=== PATIENT | male | born 1955 | race Caucasian/White ===

== ENCOUNTER → 2016-05-17 | Outpatient (CLI) | payer OTHER | LOC: FIMAGING 09:16 | PROVIDERS: ATTEND Nurse Practitioner | DX: K22.2 Esophageal obstruction (principal); C15.9 Malignant neoplasm of esophagus, unspecified ==

== ENCOUNTER 2016-05-23 10:13 | Day surgery (SDC) | payer OTHER ==
[2016-05-23] MEDS ORDERED: LIDOCAINE 1% 5 ML SDV ONE (11:11)
[2016-05-23] MEDS ORDERED: MIDAZOLAM 2 MG/2 ML VIAL ONE (11:22)
[2016-05-23] MEDS ORDERED: KETAMINE 100 MG/10 ML SYR IVP ONE (11:31)
[2016-05-23] MEDS ORDERED: fentaNYL 100 MCG/2 ML INJ ONE (11:33)
[2016-05-23] MEDS ORDERED: PROPOFOL 200 MG/20 ML VIAL ONE ×2 (11:37→12:02)
[2016-05-23] MEDS ORDERED: GLYCOPYRROLATE 0.2 MG/1 ML VIAL ONE (12:01)
--- NOTE | 2016-05-23 12:51 | GPN ---
PREPROCEDURE DIAGNOSIS: Dysphagia, history of esophageal cancer. POSTPROCEDURE DIAGNOSIS: Esophageal stricture, status post biopsies and foreign body removal. PROCEDURE: EGD with biopsy and foreign body removal. MEDICATIONS: Monitored anesthesia care. INDICATIONS: The patient is a 61-year-old gentleman with history of esophageal cancer which was treated with chemoradiation. He did not have surgical resection. He also had concern for metastatic disease in his femur and shoulder. He has been having progressive dysphagia. On his prior upper endoscopy and endoscopic ultrasound, he was noted to have a narrowing at 35 cm from the incisors. Biopsies in January of this site were not done. There was no obvious deeper invasion on EUS. The patient is here for repeat upper endoscopy, possible dilation, possible biopsy. The risks and benefits of the procedure were discussed with the patient. Consent was obtained. The risks include, but not limited to, bleeding, perforation, missed lesions and sedation. The patient is ASA class 3. DESCRIPTION OF PROCEDURE: The upper scope was advanced into the esophagus. At 34 cm from the incisors, there is a nodular, ulcerated inflammation and stricture. This could be benign or malignant. I was unable to pass the scope past this area. There was a pill noted in the esophagus proximal to the stricture. Since it was felt that the pill would not pass on its own, I removed the pill using a Antonio net. Next, I reinserted the pediatric upper scope which was able to be passed beyond the stricture and narrowing. The stricture and narrowing is located between 34 and 37 cm from the incisors. There is a medium sized hiatal hernia distal to the stricture. The stomach appears normal. The duodenum and second portion appears normal. Multiple biopsies were taken of the stricture ulcerated area using pediatric cold biopsy forceps and sent off to pathology. The area is extremely friable. No dilation was performed today given the high risk of balloon dilation in an ulcerated area particularly if there is recurrent malignancy in this location. IMPRESSION: Tight distal esophageal stricture between 34 and 37 cm incisors which could be benign or malignant status post biopsies. RECOMMENDATIONS: 1. The patient needs to be on a liquid diet. 2. Follow up the final pathology results. Results will be available within 10 days. We will send the path stat, however. Hopefully, it will be back within a day or 2. 3. Depending on the final biopsy results, we will decide what to do. If this all appears benign, I would consider wire guided balloon dilation with fluoroscopy. However, if recurrent cancer, they will have to decide if he is a candidate for any further radiation versus considering esophageal stent versus G tube. 4. Follow up with Dr. Duran as scheduled, and I will call him to discuss further management plan from dysphagia depending on what the biopsies show. Thank you for allowing me to participate in the care of your patient. Please do not hesitate to call with questions. /[id number]/MODL MTDD
== END 2016-05-23 13:55 | disposition home or self-care (01) ==
LOC: FSGY 10:13
PROVIDERS: ATTEND Internal Medicine Gastroenterology
DX: C15.4 Malignant neoplasm of middle third of esophagus (principal); T18.198A Other foreign object in esophagus causing other injury, initial encounter; K44.9 Diaphragmatic hernia without obstruction or gangrene
CPT/HCPCS: J2250; J2704; J3010

== ENCOUNTER 2016-06-04 10:21 | Day surgery (SDC) | payer OTHER ==
[2016-06-04] MEDS ORDERED: LIDOCAINE 1% 5 ML SDV ONE (10:46)
[2016-06-04] MEDS ORDERED: LIDOCAINE 1% 5 ML SDV ID PRN (10:51)
[2016-06-04] MEDS ORDERED: LR 1,000 ML IV ONE (10:51)
[2016-06-04] MEDS ORDERED: PROPOFOL/EMULSION 500 MG/50 ML BOTTLE IV ONE ×2 (11:34→11:57)
[2016-06-04] MEDS ORDERED: LIDOCAINE 2% 100 MG/5 ML SYR IVP ONE (11:34)
[2016-06-04] MEDS ORDERED: fentaNYL 100 MCG/2 ML INJ ONE ×2 (11:34→12:55)
--- NOTE | 2016-06-04 13:46 | GPN ---
PREPROCEDURE DIAGNOSIS: Malignant esophageal cancer, dysphagia. POSTPROCEDURE DIAGNOSIS: Malignant esophageal cancer, dysphagia. Status post esophageal stent placement. NAME OF PROCEDURE: Esophagogastroduodenoscopy with foreign body removal. Esophagogastroduodenoscopy with stent placement. MEDICATIONS: Monitored anesthesia care. INDICATIONS: The patient is a 61-year-old male with malignant esophageal cancer and recurrence after chemoradiation therapy, status post recent EGD, which showed recurrence between 34 and 37 cm with biopsies showing adenocarcinoma with signet ring features. He is here today for esophageal stent placement. The risks and benefits of the procedure were discussed with the patient, and consent obtained. Risks include, but are not limited to, bleeding, perforation, sedation. The patient is ASA class III. DESCRIPTION OF PROCEDURE: Initially, the pediatric upper scope was advanced into the esophagus. The stricture was again seen at 34 cm. Secondary to malignant cancer. There were pills in the proximal esophagus and food. The scope was then switched to the adult scope, and the pill was removed using a Antonio net. Next, the pediatric scope was re-inserted and advanced into the stomach. He has a medium sized hiatal hernia. The stomach appears normal. The duodenum and second portion was normal. Next, the Savary wire was placed into the stomach to hold position. The scope was then exchanged for the adult scope and a hemoclip was placed at 31 cm to kofi the proximal position of the stent. The scope was then removed, and then the stent re-inserted over the Savary wire using fluoroscopic guidance. An 18 mm x 10.3 cm fully covered esophageal WallFlex stent was placed. The scope was re-inserted to use direct visualization and fluoroscopic guidance for stent placement. The stent was deployed in the proper position. Waist was seen in the center of the stent, again indicating proper positioning. The procedure was then terminated. IMPRESSION: Esophageal stricture secondary to adenocarcinoma status post placement of a fully covered WallFlex esophageal stent. RECOMMENDATIONS: 1. Discharge home with escort. 2. The stent takes 48 hours to fully expand, so I am recommending a liquid diet for the next 48 hours. Then, he can advance to a soft diet. 3. Follow up with Dr. Duran as previously scheduled to discuss further treatment for esophageal cancer. Thank you for allowing me to participate in the care of your patient. Please do not hesitate to call with questions. /[id number]/MODL MTDD
== END 2016-06-04 13:45 | disposition home or self-care (01) ==
LOC: FSGY 10:21
PROVIDERS: ATTEND Internal Medicine Gastroenterology
PROC: 0D758DZ Dilation of Esophagus with Intraluminal Device, Via Natural or Artificial Opening Endoscopic (ICD-10-PCS; principal; 2016-06-04 12:00)
PROC: 0DC18ZZ Extirpation of Matter from Upper Esophagus, Via Natural or Artificial Opening Endoscopic (ICD-10-PCS; principal; 2016-06-04 12:00)
DX: C15.9 Malignant neoplasm of esophagus, unspecified (principal); T18.190A Other foreign object in esophagus causing compression of trachea, initial encounter; R13.10 Dysphagia, unspecified; I25.10 Atherosclerotic heart disease of native coronary artery without angina pectoris; I10 Essential (primary) hypertension; E11.9 Type 2 diabetes mellitus without complications; Z95.1 Presence of aortocoronary bypass graft
CPT/HCPCS: C1874; J2001; J2704; J3010

== ENCOUNTER 2016-06-06 03:46 | Inpatient (IN) | payer OTHER ==
[2016-06-06] MEDS ORDERED: ONDANSETRON DISINTEGRATING 4 MG TAB PO ONE (03:54)
[2016-06-06] MEDS ORDERED: ONDANSETRON 4 MG/2 ML VIAL IVP ONE ×2 (04:49→07:38)
[2016-06-06] MEDS ORDERED: HYDROmorphONE/DILAUDID 1 MG/ML SYR IVP ONE ×2 (04:49→08:49)
[2016-06-06] MEDS ORDERED: NS 1,000 ML IV ONE ×2 (04:49→07:17)
--- NOTE | 2016-06-06 04:49 | EDPHY ---
H & P Stated Complaint: post op N and V since surgery Friday for esophogeal stent placement HPI/ROS: HPI CHIEF COMPLAINT: Nausea and vomiting HISTORY OF PRESENT ILLNESS: This patient very pleasant 61-year-old male significant past medical history for esophageal cancer, hypertension, hyperlipidemia, BPH, diabetes, coronary artery bypass graft, presents emergency room with persistent nausea vomiting unable to tolerate p.o.. Patient tells me that [address] Zazueta he had an esophageal stent placed due to esophageal stricture from esophageal cancer and foreign body of pill fragments removed. This was done outpatient. He states that he has been on a clear liquid diet for the past 48 hours however has been unable to tolerate p.o. fluids he has persistent nausea vomiting. Denies fever, does endorse chills, denies abdominal pain. No recent bowel movement as he has been on clear liquids. He has not had any solid foods. Past Medical History:Esophageal CA, hypertension, hyperlipidemia, BPH, diabetes , coronary disease Past Surgical History: cholecystectomy, CABG, mcl Social History: Denies use of drugs alcohol tobacco products Family History: Noncontributory ROS REVIEW OF SYSTEMS: A comprehensive 10 point review of systems is otherwise negative aside from elements mentioned in the history of present illness. Exam Constitutional appears well nontoxic, triage nursing summary reviewed, vital signs reviewed, awake/alert. Eyes normal conjunctivae and sclera, EOMI, PERRLA. HENT normal inspection, atraumatic, moist mucus membranes, no epistaxis, neck supple/ no meningismus, no raccoon eyes. Respiratory clear to auscultation bilaterally, normal breath sounds, no respiratory distress, no wheezing. Cardiovascular rate normal, regular rhythm, no murmur, no edema, distal pulses normal. Gastrointestinal soft, non-tender, no rebound, no guarding, normal bowel sounds, no distension, no pulsatile mass. Genitourinary no CVA tenderness. Musculoskeletal no midline vertebral tenderness, full range of motion, no calf swelling, no tenderness of extremities, no meningismus, good pulses, neurovascularly intact. Skin pink, warm, & dry, no rash, skin atraumatic. Neurologic awake, alert and oriented x 3, AAOx3, moves all 4 extremities equally, motor intact, sensory intact, CN II-XII intact, normal cerebellar, normal vision, normal speech. Psychiatric normal mood/affect. Heme/Lymph/Immune no lymphadenopathy. Differential diagnosis includes but is not limited to and in no particular order : Electrolyte abnormality, dehydration, esophageal stricture, esophagitis, nausea vomiting from a recent stent in the esophagus, esophageal perforation Bowel obstruction, appendicitis, gallbladder disease, diverticulitis, colitis, enteritis, perforated viscus, gastritis, GERD, esophagitis, urinary tract infection, pyelonephritis, kidney stones Medical Decision Making: Plan for this patient patient be placed on full monitor patient had an IV established will receive a fluid bolus of IV fluids normal saline, IV Zofran for nausea. Will check abdominal blood work including liver enzymes, lipase, patient had an upright chest x-ray and KUB. Re-evaluation: ED x-ray chest one view: no free air visualized. Chest x-ray unremarkable for acute cardiopulmonary disease. Port left chest. Cardiomegaly present. However no focal infiltrate or free air under the diaphragm. Image interpreted by myself pain ED x-ray KUB one view; shows normal bowel gas pattern, I can visualize esophageal stent. No free air. 0625: re-evaluation at this time patient is resting comfortably he has not had any vomiting here. He tells me his nausea has resolved. He did received IV fluid 1 L, and IV Zofran 4 mg. Patient does feel much better. He is requesting go home. Re-examination is abdomen is soft nontender no guarding or peritoneal signs. X-ray and blood work review does have a mild leukocytosis. Otherwise unremarkable. Patient will attempt a p. o. challenge and if he tolerates this and still feels well without any vomiting or nausea I will allow her to go home however he does understand return immediately emergency room if he develops any worsening symptoms includes worsening abdominal pain, fever vomiting. 0654: this patient p. o. challenge successfully. No vomiting. Abdomen remained soft. Patient like to go home. I will give him prescription for Zofran. Understands return immediately to emergency room if develops any worsening symptoms includes worsening abdominal pain, vomiting fever. P. o. challenge and feels comfortable discharge planning. Source: Patient - Personal History Current Tetanus/Diphtheria Vaccine: No Current Tetanus Diphtheria and Acellular Pertussis (TDAP): No - Medical/Surgical History Hx Diabetes: Yes Hx Cardiac Disease: Yes Other PMH: esophogeal CA, HTN, high chol, GERD, DMII. PSH: esophogeal stent, CABG, tonsilectomy, appy, choly - Social History Smoking Status: Former smoker Constitutional: Initial Vital Signs Temperature (C) 37.1 C 06/06/16 03:51 Heart Rate 77 06/06/16 03:51 Respiratory Rate 15 06/06/16 03:51 Blood Pressure 180/92 H 06/06/16 03:51 O2 Sat (%) 95 06/06/16 03:51 O2 Delivery Mode Room Air Allergies/Adverse Reactions: No Known Allergies Allergy (Verified 05/24/15 16:01) Home Medications: Medication Instructions Recorded Aspirin 02/05/16 Atorvastatin Calcium 02/05/16 Glipizide 02/05/16 Herbals/Supplements -Info Only 02/05/16 Janumet 50-500 mg Tablet 02/05/16 Lisinopril 02/05/16 Metoprolol Succinate 02/05/16 Omeprazole 02/05/16 Tamsulosin HCl 02/05/16 Ondansetron HCl [Zofran] 4 mg PO Q4-6PRN PRN #10 tablet 06/06/16 Medical Decision Making - Data Points Laboratory Results: Laboratory Results 06/06/16 05:05 06/06/16 05:05 06/06/16 06/06/16 06/06/16 05:05 05:05 05:05 WBC 15.19 10^3/uL H 10^3/uL (3.80-9.50) RBC 4.97 10^6/uL 10^6/uL (4.40-6.38) Hgb 16.3 g/dL g/dL (13.7-17.5) Hct 46.6 % % (40.0-51.0) MCV 93.8 fL fL (81.5-99.8) MCH 32.8 pg pg (27.9-34.1) MCHC 35.0 g/dL g/dL (32.4-36.7) RDW 12.7 % % (11.5-15.2) Plt Count 198 10^3/uL 10^3/uL (150-400) MPV 9.6 fL fL (8.7-11.7) Neut % (Auto) 79.9 % H % (39.3-74.2) Lymph % (Auto) 8.8 % L % (15.0-45.0) [place] % (Auto) 10.2 % % (4.5-13.0) Eos % (Auto) 0.2 % L % (0.6-7.6) Baso % (Auto) 0.2 % L % (0.3-1.7) Nucleat RBC Rel Count 0.0 % % (0.0-0.2) Absolute Neuts (auto) 12.15 10^3/uL H 10^3/uL (1.70-6.50) Absolute Lymphs (auto) 1.33 10^3/uL 10^3/uL (1.00-3.00) Absolute Monos (auto) 1.55 10^3/uL H 10^3/uL (0.30-0.80) Absolute Eos (auto) 0.03 10^3/uL 10^3/uL (0.03-0.40) Absolute Basos (auto) 0.03 10^3/uL 10^3/uL (0.02-0.10) Absolute Nucleated RBC 0.00 10^3/uL 10^3/uL (0-0.01) Immature Gran % 0.7 % % (0.0-1.1) Immature Gran # 0.10 10^3/uL 10^3/uL (0.00-0.10) PT 13.7 SEC SEC (12.0-15.0) INR 1.06 (0.83-1.16) APTT 27.5 SEC SEC (23.0-38.0) VBG Lactic Acid Sodium 140 mEq/L mEq/L (134-144) Potassium 4.0 mEq/L mEq/L (3.5-5.2) Chloride 104 mEq/L mEq/L (97-110) Carbon Dioxide 23 mEq/l mEq/l (22-31) Anion Gap 13 mEq/L mEq/L (8-16) BUN 18 mg/dL mg/dL (7-23) Creatinine 0.7 mg/dL mg/dL (0.7-1.3) Estimated GFR > 60 Glucose 227 mg/dL H mg/dL (70-100) Calcium 9.6 mg/dL mg/dL (8.5-10.4) Total Bilirubin 1.6 mg/dL H mg/dL (0.1-1.4) Conjugated Bilirubin 0.6 mg/dL H mg/dL (0.0-0.5) Unconjugated Bilirubin 1.0 mg/dL mg/dL (0.0-1.1) AST 27 IU/L IU/L (17-59) ALT 44 IU/L IU/L (21-72) Alkaline Phosphatase 83 IU/L IU/L (38-126) Troponin I < 0.012 ng/mL ng/mL (0-0.034) Total Protein 7.6 g/dL g/dL (6.3-8.2) Albumin 4.3 g/dL g/dL (3.5-5.0) Lipase 59.0 IU/L IU/L (23-300) 06/06/16 05:05 WBC RBC Hgb Hct MCV MCH MCHC RDW Plt Count MPV Neut % (Auto) Lymph % (Auto) [place] % (Auto) Eos % (Auto) Baso % (Auto) Nucleat RBC Rel Count Absolute Neuts (auto) Absolute Lymphs (auto) Absolute Monos (auto) Absolute Eos (auto) Absolute Basos (auto) Absolute Nucleated RBC Immature Gran % Immature Gran # PT INR APTT VBG Lactic Acid 1.6 mmol/L mmol/L (0.7-2.1) Sodium Potassium Chloride Carbon Dioxide Anion Gap BUN Creatinine Estimated GFR Glucose Calcium Total Bilirubin Conjugated Bilirubin Unconjugated Bilirubin AST ALT Alkaline Phosphatase Troponin I Total Protein Albumin Lipase Medications Given: Discontinued Medications Hydromorphone HCl (Dilaudid) 0.5 mg IVP EDNOW ONE Stop: 06/06/16 04:50 Last Admin: 06/06/16 05:29 Dose: 0.5 mg Sodium Chloride (Ns) 1,000 mls @ 0 mls/hr IV ONCE ONE PRN Reason: Wide Open Stop: 06/06/16 04:50 Last Admin: 06/06/16 05:20 Dose: 1,000 mls Ondansetron HCl (Zofran Odt) 4 mg PO EDNOW ONE Stop: 06/06/16 03:55 Last Admin: 06/06/16 04:01 Dose: 4 mg Ondansetron HCl (Zofran) 4 mg IVP EDNOW ONE Stop: 06/06/16 04:50 Last Admin: 06/06/16 05:20 Dose: 4 mg Departure - Departure Disposition: Home, Routine, Self-Care Clinical Impression: Vomiting Qualifiers: Vomiting type: unspecified Vomiting Intractability: non-intractable Nausea presence: with nausea Qualified Code(s): R11.2 - Nausea with vomiting, unspecified Condition: Good Instructions: Acute Nausea and Vomiting (ED) Additional Instructions: 1. return to the emergency room if develops worsening symptoms includes fever, abdominal pain, vomiting Referrals: Zeke Buchanan MD [Primary Care Provider] - As per Instructions Prescriptions: Ondansetron HCl [Zofran] 4 mg PO Q4-6PRN PRN #10 tablet PRN Reason: Nausea/Vomiting, Use 1st
[2016-06-06 05:19] LABS: % IMMATURE GRANULYOCYTES 0.7 % (0.0-1.1); ADD DIFF? NO; ADD MORPH? NO; ADD SCAN? NO; ATYPICAL LYMPHOCYTE FLAG 0 (0-99); FRAGMENT RBC FLAG 0 (0-99); HEMATOCRIT 46.6 % (40.0-51.0); HEMOGLOBIN 16.3 g/dL (13.7-17.5); LEFT SHIFT FLG 0 (0-99); LIPEMIA HEMOLYSIS FLAG 90 (0-99); MEAN CELL HEMOGLOBIN 32.8 pg (27.9-34.1); MEAN CELL VOLUME 93.8 fL (81.5-99.8); MEAN PLATELET VOLUME 9.6 fL (8.7-11.7); PLATELET CLUMPS FLAG 0 (0-99); PLATELET COUNT 198 10^3/uL (150-400); RED BLOOD CELL COUNT 4.97 10^6/uL (4.40-6.38); RED CELL DISTRIBUTION WIDTH 12.7 % (11.5-15.2)
[2016-06-06 05:31] LABS: ALANINE AMINOTRANSFERASE 44 IU/L (21-72); ALBUMIN 4.3 g/dL (3.5-5.0); ALKALINE PHOSPHATASE 83 IU/L (38-126); ANION GAP 13 mEq/L (8-16); ASPARTATE AMINOTRANSFERASE 27 IU/L (17-59); BILIRUBIN,TOTAL 1.6 mg/dL (0.1-1.4); BILIRUBIN-CONJUGATED 0.6 mg/dL (0.0-0.5); CALCIUM 9.6 mg/dL (8.5-10.4); CARBON DIOXIDE 23 mEq/l (22-31); CHLORIDE 104 mEq/L (97-110); CREATININE 0.7 mg/dL (0.7-1.3); GLOMERULAR FILTRATION RATE > 60; GLUCOSE 227 mg/dL (70-100); SODIUM 140 mEq/L (134-144); TOTAL PROTEIN 7.6 g/dL (6.3-8.2)
[2016-06-06 05:36] LABS: APTT 27.5 SEC (23.0-38.0); INR 1.06 (0.83-1.16); PROTIME(PATIENT) 13.7 SEC (12.0-15.0)
[2016-06-06 05:41] LABS: TROPONIN I < 0.012 ng/mL (0-0.034)
[2016-06-06] MEDS ORDERED: PROMETHAZINE HCL 25 MG/ML INJ IVP ONE (07:17)
[2016-06-06] MEDS ORDERED: PROCHLORPERAZINE MALEATE 10 MG TAB PO ONE (07:27)
[2016-06-06] MEDS ORDERED: ONDANSETRON 4 MG/2 ML VIAL ONE (07:29)
[2016-06-06] MEDS ORDERED: HYDROmorphONE/DILAUDID 2 MG/ML INJ ONE (08:51)
[2016-06-06] MEDS ORDERED: LORazepam 2 MG/ML INJ IVP PRN (09:53)
[2016-06-06] MEDS ORDERED: ONDANSETRON 4 MG/2 ML VIAL IVP PRN (09:53)
[2016-06-06] MEDS ORDERED: ACETAMINOPHEN 325 MG TAB PO PRN (09:53)
[2016-06-06] MEDS ORDERED: KETOROLAC 30 MG/1 ML SDV IVP PRN (09:53)
[2016-06-06] MEDS ORDERED: PROMETHAZINE HCL 25 MG SUPPR PR PRN (09:54)
[2016-06-06] MEDS ORDERED: METOCLOPRAMIDE 10 MG/2 ML VIAL IVP PRN (09:55)
[2016-06-06] MEDS ORDERED: HYDROCODONE/APAP 10/325 TAB PO PRN (09:56)
[2016-06-06] MEDS ORDERED: D50W 25 GM/50 ML SYR IVP PRN (09:57)
[2016-06-06] MEDS ORDERED: LORazepam 2 MG/ML INJ ONE (09:59)
[2016-06-06] MEDS ORDERED: KETOROLAC 30 MG/1 ML SDV ONE (10:00)
--- NOTE | 2016-06-06 10:32 | GHP ---
[f rep st] HISTORY AND PHYSICAL DATE OF ADMISSION: 06/06/2016 CHIEF COMPLAINT: Nausea and vomiting. HISTORY: The patient is a 61-year-old male with esophageal cancer. Underwent esophageal stent plac emgentry with Dr. Zazueta 2 days ago. At the time of endoscopy, he was found to have pills and food pr oximal to the stricture. Stent was changed. According to Dr. Zazueta's records, the stent will yvette e 48 hours to fully expand, and liquid diet was recommended for 2 days. Patient has had persistent nausea and vomiting ever since the stent was placed. It has been unrelen ting for the last 3 days. He has a constant mid chest pain since the procedure 06/07 to 07/08. This has not worsened over the last couple days but has just remained significant. He has not slept a wi nk since the stent was placed. There is no abdominal pain. He has been attempting to take liquids only but has not even been able to maintain that. Dry heaving for 3 days, without any hematemesis. He has been passing gas but no bowel movement. PAST MEDICAL HISTORY: 1. Esophageal cancer, status post chemo and radiation. Followed by Dr. Duran. He has mets to hi s femur and shoulder on PET scan. 2. Coronary artery disease, status post CABG. 3. Diabetes, type 2. 4. BPH. 5. Hyperlipidemia. PAST SURGICAL HISTORY: Cholecystectomy. MEDICATIONS: Please see computer record for full detailed list. ALLERGIES: No known drug allergies. SOCIAL HISTORY: No smoking. No alcohol. He lives with his . REVIEW OF SYSTEMS: Complete review of systems obtained. Review of systems is negative on constitut ional, HEENT, GI, pulmonary, vascular, , hematology, skin, musculoskeletal, endocrine, and psych e xcept for positives and negatives as in HPI. FAMILY HISTORY: Sister and mother both with breast cancer. PHYSICAL EXAMINATION: GENERAL: Well-developed, well-nourished male, in no acute distress. VITAL S IGNS: Temperature is 37.1, pulse 62, blood pressure 168/72, saturating 93% on room air. EYES: Nor mal conjunctivae. Pupils react to light. ENT: Normal ears and nose. Hearing intact. Normal lips and teeth. Oropharynx moist. NECK: Trachea midline. No thyromegaly. CHEST: Normal effort. Shannan ngs clear to auscultation bilaterally. CARDIOVASCULAR: Regular rate and rhythm. No murmur. No lo wer extremity edema. ABDOMEN: Soft, nontender. No hepatosplenomegaly. SKIN: Warm, dry, intact. No rash. MUSCULOSKELETAL: No cyanosis or clubbing. Strength 5/5 upper and lower extremities. NE URO: Cranial nerves intact. Normal sensation to light touch. PSYCH: Alert and oriented x3. Norm al mood and affect. Normal judgment and insight. Normal memory. LABORATORY DATA: White count 15.19, hematocrit 46.6, platelets 198. Sodium 140, potassium 4.0, chl oride 104, bicarb 23, BUN 18, creatinine 0.7, glucose 227. INR is 1.06. LFTs are negative except f or total bili of 1.6 and conjugated bili 0.6. Lactate is 1.6. Chest x-ray is negative. Abdominal x-ray is negative. MEDICAL RECORD REVIEW: I reviewed Dr. Zazueta's records for procedure done 2 days ago. It appears esophageal stent was placed without difficulty, and 48 hours of liquid diet was recommended. ASSESSMENT/PLAN: 1. Intractable nausea and vomiting, status post esophageal stent placement. My suspicion for a com plication with the stent placement is quite low, and I do not think he needs any further imaging at this time. We will admit him under observation and continue with supportive care, including IV anti emetics and IV morphine. I have contacted Dr. Rock and informed him of this admission. 2. Esophageal cancer, status post chemoradiation. Hopefully this will be a short stay with some buckner pportive care, but we can involve Oncology if needed. 3. Diabetes, type 2. Will hold his oral diabetes medications until he is able to take more oral in take. 4. Coronary artery disease, status post coronary artery bypass graft. This appears stable. 5. Obesity, BMI is 37. CODE STATUS: Full. ADMISSION STATUS: Will admit to observation. Will continue a period of supportive care and observa tion to ensure he is improved and able to take p.o. DVT PROPHYLAXIS: He is high risk. Will place him on subcu Lovenox. /[id number]/MODL
[2016-06-06] MEDS ORDERED: METOPROLOL TARTRATE 50 MG TAB ONE (11:05)
[2016-06-06] MEDS: METOPROLOL TARTRATE 50 MG TAB PO SCH ×2 (11:22→21:04)
[2016-06-06] MEDS: INSULIN REGULAR HUMAN 100 UNIT/ML SC SCH ×3 (11:44→21:27)
[2016-06-06] MEDS ORDERED: PANTOPRAZOLE SODIUM 40 MG VIAL ONE (11:49)
[2016-06-06 11:51] LABS: COLOR YELLOW; LEUKOCYTE ESTERASE,URINE NEGATIVE (NEGATIVE); NITRITE,URINE NEGATIVE (NEGATIVE)
[2016-06-06] MEDS: PANTOPRAZOLE SODIUM 40 MG in NS 100 ML IV SCH ×2 (11:53→21:05)
[2016-06-06 11:56] LABS: MUCUS 2+ /lpf (NONE-1+)
[2016-06-06] MEDS ORDERED: oxyCODONE IR 5 MG TAB ONE (15:27)
[2016-06-06] MEDS: oxyCODONE IR 5 MG TAB PO PRN ×3 (15:27→23:52)
[2016-06-06] MEDS ORDERED: ZOLPIDEM TARTRATE 5 MG TAB PO PRN (16:32)
[2016-06-06] MEDS: metFORMIN HCL 500 MG TAB PO SCH (18:11)
--- NOTE | 2016-06-06 20:24 | GCON ---
[f rep st] CONSULTATION GI INPATIENT CONSULTATION. DATE OF CONSULTATION: 06/06/2016 I was kindly requested to see the patient by Dr. Heahter Jones in consultation for chief complaint of nausea, vomiting. Two days ago, he had a covered metal stent placed in the esophagus by my partner , Dr. Zazueta. Over the last 2 days, he has had some postprocedural chest pain. He has also had some increase in reflux, regurgitation, cough. He normally takes omeprazole, but has not been on this since Friday. He has also had nausea and vomiting. Now, after IV fluids, and especially after Zofran and OxyContin, he feels much better. He denies any further nausea and vomiting. He has had some clear liquids tonight, which for the most part went down well. He has known recurrent esophageal cancer. His procedure 2 days ago was due to significant dysphagia from a malignant stricture at 34 cm in the esophagus. The procedure was done under monitored anesthesia. At the time, he had significant food and pills stuck above his malignant stricture. These were removed by Dr. Zazueta. The stricture itself began at 34 cm. There was a medium-sized hiatal hernia. An 18 mm diameter, 10.3 cm long covered self- expanding metal Wallstent was placed. Chest x-ray now shows that the stent is in good position, without e/o perforation, etc. No fever. PAST MEDICAL HISTORY: 1. As above. 2. Status post chemo and radiation for the above esophageal cancer. It is metastatic, including to his femur and shoulder. 3. Coronary artery disease, status post bypass grafting. 4. Diabetes mellitus. 5. BPH. 6. Elevated lipids. 7. Status post cholecystectomy. ALLERGIES: No known drug allergies. MEDICATIONS: Outpatient, include the above. Inpatient, include Lopressor, Lovenox, Glucotrol, Humulin, pantoprazole 40 mg IV b.i.d., Januvia, glipizide, Zestril, Toradol as needed, Ativan as needed, IV fluids, Flomax, Ambien, Glucophage, Reglan as needed. SOCIAL HISTORY: He is . FAMILY HISTORY: Negative for similar nausea and vomiting. REVIEW OF SYSTEMS: Positive pertinent Review of Systems as per my HPI. Otherwise, a complete Review of Systems is negative. PHYSICAL EXAM: CONSTITUTIONAL: Nontoxic-appearing gentleman. SKIN: Warm, dry. HEENT: Eyes: Pupils equal, round, react to light accommodation. Ear, nose, mouth, and throat: Oropharynx without masses, moist mucosa. CARDIOVASCULAR: Normal S2, normal PMI. RESPIRATORY: Lungs clear to auscultation and percussion anteriorly. GASTROINTESTINAL: Abdomen is profuse, nontender. NEUROLOGIC: Grossly nonfocal, with cranial nerves grossly intact. PSYCHIATRIC: Orientation, insight appropriate. MUSCULOSKELETAL: Strength is grossly normal throughout, normal sensation. LABORATORIES: Include the above. Normal coags. White count 15,000. Glucose 227. Normal lipase. Total bilirubin 1.6 with mostly unconjugated. Normal liver function tests otherwise. ASSESSMENT: 1. Chest discomfort after esophageal metal stent placement [address] Zazueta. Almost certainly due to the metal stent slowly expanding only. This should resolve. No evidence of perforation, stent migration, etc. 2. Nausea, vomiting, cough, reflux, regurgitation. Now, with IV fluids, Zofran , OxyContin, doing much better. Overall, suspect this is multifactorial. Suspect a contribution from expected chest discomfort from the expanding stent, some reflux and regurgitation from the stent now bridging his stricture and his not being on his usual omeprazole since Friday, glucose moderately out of control, and possible residual anesthesia effects. Suspect all these symptoms will improve with time. 3. Slightly elevated unconjugated bilirubin. 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 PLAN: 1. I agree with present aggressive management for tonight. 2. Recommend tighter and more simplified control (? more insulin, and less oral meds) of his diabetes as an outpatient. 3. Tomorrow, if he continues to be doing better, we can liberalize his care and see how he does. In this regard, I would recommend Zofran sublingual as his primary antiemetic. Would recommend a liquid narcotic p.r.n. as his primary medicine for chest pain. Would recommend continuing on his omeprazole daily long-term. Finally, would recommend increasing his diet to a full liquid or a soft, textured diet (dysphagia or gastroparesis level 3 diet), with a consultation with a dietitian while here in the hospital. 4. If he does well with the above liberalized care, okay to discharge home. Thank you for allowing me to help with the management of this patient. /[id number]/MODL MTDD
[2016-06-06] MEDS: LISINOPRIL 5 MG TAB PO SCH (21:05)
[2016-06-06] MEDS: glipiZIDE 5 MG TAB PO SCH (21:05)
[2016-06-06] MEDS: PSEUDOEPHEDRINE HCL 30 MG TAB PO PRN (21:23)
[2016-06-07] MEDS: CALCIUM CARBONATE 500 MG CHEWABLE TAB PO PRN ×2 (00:12→08:03)
[2016-06-07 06:15] LABS: % IMMATURE GRANULYOCYTES 0.4 % (0.0-1.1); ABSOLUTE IMMATURE GRANULOCYTES 0.04 10^3/uL (0.00-0.10); ADD DIFF? NO; ADD MORPH? NO; ADD SCAN? NO; ATYPICAL LYMPHOCYTE FLAG 0 (0-99); FRAGMENT RBC FLAG 0 (0-99); HEMATOCRIT 42.3 % (40.0-51.0); HEMOGLOBIN 14.5 g/dL (13.7-17.5); LEFT SHIFT FLG 0 (0-99); LIPEMIA HEMOLYSIS FLAG 90 (0-99); MEAN CELL HEMOGLOBIN 32.9 pg (27.9-34.1); MEAN CELL HEMOGLOBIN CONCENTR. 34.3 g/dL (32.4-36.7); MEAN CELL VOLUME 95.9 fL (81.5-99.8); MEAN PLATELET VOLUME 9.7 fL (8.7-11.7); PLATELET CLUMPS FLAG 10 (0-99); PLATELET COUNT 157 10^3/uL (150-400); RED BLOOD CELL COUNT 4.41 10^6/uL (4.40-6.38); RED CELL DISTRIBUTION WIDTH 12.7 % (11.5-15.2)
[2016-06-07 06:34] LABS: ALANINE AMINOTRANSFERASE 91 IU/L (21-72); ALBUMIN 3.6 g/dL (3.5-5.0); ALKALINE PHOSPHATASE 87 IU/L (38-126); ANION GAP 11 mEq/L (8-16); ASPARTATE AMINOTRANSFERASE 103 IU/L (17-59); BILIRUBIN,TOTAL 1.5 mg/dL (0.1-1.4); BILIRUBIN-CONJUGATED 0.5 mg/dL (0.0-0.5); CALCIUM 8.7 mg/dL (8.5-10.4); CARBON DIOXIDE 24 mEq/l (22-31); CHLORIDE 107 mEq/L (97-110); CREATININE 0.6 mg/dL (0.7-1.3); GLOMERULAR FILTRATION RATE > 60; GLUCOSE 177 mg/dL (70-100); POTASSIUM 3.7 mEq/L (3.5-5.2); SODIUM 142 mEq/L (134-144); TOTAL PROTEIN 6.2 g/dL (6.3-8.2)
[2016-06-07] MEDS: metFORMIN HCL 500 MG TAB PO SCH ×2 (07:40→17:01)
[2016-06-07] MEDS ORDERED: oxyCODONE IR 5 MG TAB PO PRN (07:43)
[2016-06-07] MEDS: METOPROLOL TARTRATE 50 MG TAB PO SCH (08:05)
[2016-06-07] MEDS: TAMSULOSIN HCL 0.4 MG CAP PO SCH (08:05)
[2016-06-07] MEDS: PANTOPRAZOLE SODIUM 40 MG in NS 100 ML IV SCH ×2 (08:06→20:57)
[2016-06-07] MEDS: ENOXAPARIN 40 MG/0.4 ML SYR SC SCH (08:07)
[2016-06-07] MEDS: INSULIN REGULAR HUMAN 100 UNIT/ML SC SCH ×4 (08:19→21:50)
[2016-06-07] MEDS: oxyCODONE ORAL SOLUTION 10 MG/0.5 ML UDSYR PO PRN ×4 (08:19→23:36)
[2016-06-07] MEDS: glipiZIDE 5 MG TAB PO SCH ×2 (08:22→21:07)
[2016-06-07] MEDS ORDERED: oxyCODONE ORAL SOLUTION 10 MG/0.5 ML UDSYR PO PRN (08:42)
[2016-06-07] MEDS ORDERED: NON-FORMULARY NEW DRUG (Omeprazole [Omeprazole] 20 MG) PO SCH (09:00)
[2016-06-07] MEDS: PSEUDOEPHEDRINE HCL 30 MG TAB PO PRN (09:12)
--- NOTE | 2016-06-07 10:44 | SOAPPROG ---
SOAP Progress Note Assessment/Plan: Assessment/Plan: Chest discomfort post esophageal wall stent, reflux, regurgitation, nausea, vomiting. In terms of etiologies, please see the assessment portion of my consult note from yesterday. A bit of a "rough" night, but doing better presently. - recommend one more day of aggressive inpt. therapy, including IV PPI, antiemetics, pain meds, etc. - tomorrow, if doing better as I suspect, can liberalize care. Please see my recommendations from yesterday's consult note. However, instead of omeprazole 40 mg daily senior care, would increase to bid. I am going off-service after today, so will sign off. Please call if we can be of further help [phone]). Thanks! 06/07/16 10:41 Subjective: cc: nausea, vomiting Somewhat "rough" night, with SS discomfort, reflux sx. Now, doing better. Denies rigors, chills, sweats. Tolerating p.o. Objective: Vital Signs Temp Pulse Resp BP Pulse Ox 36.8 C 57 L 18 155/74 H 96 06/07/16 07:58 06/07/16 08:05 06/07/16 07:58 06/07/16 08:05 06/07/16 07:58 Laboratory Results 06/07/16 06:02 06/07/16 06:02 06/06/16 06/07/16 06/08/16 05:59 05:59 05:59 Intake Total 2930 1408 Balance 2930 1408 PT 13.7 SEC (12.0-15.0) 06/06/16 05:05 INR 1.06 (0.83-1.16) 06/06/16 05:05 Physical Exam - Physical Exam General Appearance: WD/WN, alert, no apparent distress EENT: PERRL/EOMI, normal ENT inspection, pharynx normal, TMs normal Neck: non-tender, full range of motion, supple, normal inspection Respiratory: chest non-tender, lungs clear, normal breath sounds Cardiac/Chest: normal peripheral pulses, regular rate, rhythm Peripheral Pulses: 2+: carotid (R), carotid (L), femoral (R), femoral (L), dorsalis-pedis (R), dorsalis-pedis (L) Abdomen: normal bowel sounds, non-tender, soft Male Genitalia: deferred Rectal: deferred Back: Normal inspection Skin: normal color, warm/dry Lymphatic: no adenopathy Extremities: normal range of motion, non-tender, normal inspection, normal capillary refill Neuro/Psych: no motor/sensory deficits, alert, normal mood/affect, oriented x 3 ICD10 Worksheet Patient Problems: Problems Problem Status Onset Vomiting Acute
[2016-06-07] MEDS ORDERED: MBX SOLN 30 ML BOTTLE PO PRN (12:30)
[2016-06-07] MEDS ORDERED: SUCRALFATE 1 GM/10 ML UDCUP PO PRN (12:32)
[2016-06-07] MEDS: NS 1,000 ML IV SCH ×3 (13:09→21:07)
--- NOTE | 2016-06-07 15:30 | HOSPPROG ---
Hospitalist Progress Note Assessment/Plan: * Esophageal cancer s/p esophageal stent -post-stent uncontrolled pain/N/V -no evidence for complication - anticipated pain due to stretching of stent -continue IV PPI, anti-emetics, IVF -advance diet to full liquids as able * DM II -holding oral meds while PO intake low * CAD/CABG -reduce beta-mehran due to bradycardia * Obesity BMI 37 Subjective: Very bad night. Persistent N/V/pain. Feels like lots of acid reflux Objective: Vital Signs Temp Pulse Resp BP Pulse Ox 36.9 C 54 L 18 138/73 H 96 06/07/16 12:24 06/07/16 12:24 06/07/16 12:24 06/07/16 12:24 06/07/16 12:24 Laboratory Results 06/07/16 06:02 06/07/16 06:02 06/06/16 06/07/16 06/08/16 05:59 05:59 05:59 Intake Total 2930 1408 Balance 2930 1408 PT 13.7 SEC (12.0-15.0) 06/06/16 05:05 INR 1.06 (0.83-1.16) 06/06/16 05:05 - Physical Exam Constitutional: no apparent distress, appears nourished, not in pain Cardiovascular: regular rate and rhythym, no murmur, rub, or gallop Respiratory: no respiratory distress, no rales or rhonchi, clear to auscultation Gastrointestinal: normoactive bowel sounds, soft, non-tender abdomen, no palpable masses Skin: no rashes or abrasions, no fluctuance, no induration Neurologic: AAOx3, sensation intact bilaterally Psychiatric: interacting appropriately, not anxious, not encephalopathic, thought process linear ICD10 Worksheet Patient Problems: Problems Problem Status Onset Vomiting Acute
[2016-06-07] MEDS: METOPROLOL TARTRATE 25 MG TAB PO SCH (20:57)
[2016-06-07] MEDS: LISINOPRIL 5 MG TAB PO SCH (20:57)
[2016-06-08] MEDS: oxyCODONE ORAL SOLUTION 10 MG/0.5 ML UDSYR PO PRN ×4 (04:09→18:39)
[2016-06-08 04:20] LABS: % IMMATURE GRANULYOCYTES 0.5 % (0.0-1.1); ABSOLUTE IMMATURE GRANULOCYTES 0.04 10^3/uL (0.00-0.10); ADD DIFF? NO; ADD MORPH? NO; ADD SCAN? NO; ATYPICAL LYMPHOCYTE FLAG 10 (0-99); FRAGMENT RBC FLAG 0 (0-99); HEMATOCRIT 38.3 % (40.0-51.0); HEMOGLOBIN 13.4 g/dL (13.7-17.5); LEFT SHIFT FLG 0 (0-99); LIPEMIA HEMOLYSIS FLAG 90 (0-99); MEAN CELL HEMOGLOBIN 33.2 pg (27.9-34.1); MEAN CELL VOLUME 94.8 fL (81.5-99.8); MEAN PLATELET VOLUME 9.6 fL (8.7-11.7); PLATELET CLUMPS FLAG 0 (0-99); PLATELET COUNT 123 10^3/uL (150-400); RED BLOOD CELL COUNT 4.04 10^6/uL (4.40-6.38); RED CELL DISTRIBUTION WIDTH 12.2 % (11.5-15.2)
[2016-06-08] MEDS: CALCIUM CARBONATE 500 MG CHEWABLE TAB PO PRN ×3 (04:21→21:45)
[2016-06-08] MEDS: MAG HYDROX/AL HYDROX/SIMETH 30 ML UDCUP PO PRN ×4 (04:23→17:00)
[2016-06-08 04:55] LABS: ANION GAP 8 mEq/L (8-16); CALCIUM 8.6 mg/dL (8.5-10.4); CARBON DIOXIDE 26 mEq/l (22-31); CHLORIDE 106 mEq/L (97-110); CREATININE 0.6 mg/dL (0.7-1.3); GLOMERULAR FILTRATION RATE > 60; GLUCOSE 170 mg/dL (70-100); POTASSIUM 3.7 mEq/L (3.5-5.2); SODIUM 140 mEq/L (134-144)
[2016-06-08] MEDS: TAMSULOSIN HCL 0.4 MG CAP PO SCH (08:20)
[2016-06-08] MEDS: INSULIN REGULAR HUMAN 100 UNIT/ML SC SCH ×4 (08:20→21:44)
[2016-06-08] MEDS: NS 1,000 ML IV SCH ×2 (08:20→20:16)
[2016-06-08] MEDS: PANTOPRAZOLE SODIUM 40 MG in NS 100 ML IV SCH ×2 (08:20→20:15)
[2016-06-08] MEDS: METOPROLOL TARTRATE 25 MG TAB PO SCH ×2 (08:21→20:17)
[2016-06-08] MEDS: ENOXAPARIN 40 MG/0.4 ML SYR SC SCH (08:23)
[2016-06-08] MEDS: metFORMIN HCL 500 MG TAB PO SCH ×2 (08:23→19:09)
[2016-06-08] MEDS: glipiZIDE 5 MG TAB PO SCH ×2 (08:23→22:43)
--- NOTE | 2016-06-08 15:37 | HOSPPROG ---
Hospitalist Progress Note Assessment/Plan: * St IV Esophageal cancer s/p esophageal stent -post-stent uncontrolled pain/N/V -no evidence for complication - anticipated pain due to stretching of stent - improving -continue IV PPI, anti-emetics, IVF -advance diet to full liquids as able * DM II -holding oral meds while PO intake low, has SSI low, may resume po meds in future * CAD/CABG -reduced beta-mehran due to bradycardia * Obesity BMI 37 DISPO: med surg, inpatient status. Subjective: Pt is feeling a little better today, improved pain. C/o severe acid reflux, but is controlled a little w/ Protonix IV. Objective: Vital Signs Temp Pulse Resp BP Pulse Ox 36.8 C 67 16 143/83 H 93 06/08/16 13:12 06/08/16 13:12 06/08/16 13:12 06/08/16 13:12 06/08/16 14:37 Laboratory Results 06/08/16 04:15 06/08/16 04:15 06/07/16 06/08/16 06/09/16 05:59 05:59 06:59 Intake Total 3003 Balance 3003 PT 13.7 SEC (12.0-15.0) 06/06/16 05:05 INR 1.06 (0.83-1.16) 06/06/16 05:05 General: The patient is An obese, middle-aged male who is alert and in no acute distress. HEENT: normocephalic, extraocular movements intact, conjunctivae clear, no lesions on face. Nares and oral mucosa pink and moist. Neck: trachea midline, no visible masses, no external lesions. CV: +S1/S2, RRR, no MRG. Resp: unlabored, CTAB no RRW. Abd: soft and nondistended. +BS, nontender. Musculoskeletal: Normal muscle tone and bulk. Neuro: cranial nerves II XII grossly intact. Intact gross motor and sensory function. Psych: appropriate mood/affect. Skin: no pallor. ICD10 Worksheet Patient Problems: Problems Problem Status Onset Vomiting Acute
[2016-06-08] MEDS: LISINOPRIL 5 MG TAB PO SCH (20:17)
[2016-06-09] MEDS: oxyCODONE ORAL SOLUTION 10 MG/0.5 ML UDSYR PO PRN ×4 (00:14→17:40)
[2016-06-09 05:38] VITALS: RESP 18
[2016-06-09] MEDS: MAG HYDROX/AL HYDROX/SIMETH 30 ML UDCUP PO PRN (06:09)
[2016-06-09 08:30] VITALS: BP 143/81; PULSE 64; TEMP 96.8; O2SAT 96
[2016-06-09] MEDS: INSULIN REGULAR HUMAN 100 UNIT/ML SC SCH ×3 (11:08→15:58)
[2016-06-09] MEDS: CALCIUM CARBONATE 500 MG CHEWABLE TAB PO PRN (11:14)
[2016-06-09] MEDS: PANTOPRAZOLE SODIUM 40 MG in NS 100 ML IV SCH (11:15)
[2016-06-09] MEDS: METOPROLOL TARTRATE 25 MG TAB PO SCH (11:16)
[2016-06-09] MEDS: TAMSULOSIN HCL 0.4 MG CAP PO SCH (11:16)
[2016-06-09] MEDS: ENOXAPARIN 40 MG/0.4 ML SYR SC SCH (11:18)
[2016-06-09] MEDS: metFORMIN HCL 500 MG TAB PO SCH (12:55)
--- NOTE | 2016-06-09 18:11 | PDDCSUM ---
Discharge Summary Discharge Summary: Date of Admission: 06/07/2016 Date of Discharge: 06/09/2016 Discharge Diagnoses: Stage IV recurrent esophageal cancer Severe GERD Type 2 diabetes mellitus Coronary artery disease, status post CABG BPH Obesity Hyperlipidemia Admission Diagnoses: Intractable nausea and vomiting, status post esophageal stent placement Stage IV recurrent esophageal cancer, status post chemo/radiation/surgery GERD Type 2 diabetes Coronary artery disease, status post CABG Obesity BPH Hyperlipidemia Consultants: KIMBERLY-Dr. Rock [place] Hospital Course: The patient is a 61-year-old male with past medical history of recurrent stage IV esophageal cancer who presented with intractable nausea and vomiting and severe retrosternal chest pain following placement of an esophageal stent 2 days prior to admission. Patient also had severe heartburn, regurgitation and cough associated with this. He was unable to keep his medications or food/ drink down. Patient was given IV antiemetics, fluids, and liquid analgesics. GI was consulted and recommended supportive care until the symptoms subside. His symptoms slowly improved over the course of a few days. Patient was discharged on 06/09/2016 in stable condition without any symptoms of nausea, vomiting or chest pain. He was able to keep food down, having mostly eaten soft/ liquid foods. His reflux was still bothersome, but he may double his dose of omeprazole per recommendation of GI. GI recommended that patient be started on insulin as an outpatient instead of having to take p.o. meds for his diabetes. Since he was not having trouble swallowing at discharge, he was kept on his p.o. medications. Physical Exam: General: The patient is an obese, middle-aged male who is alert and in no acute distress. HEENT: normocephalic, extraocular movements intact, conjunctivae clear. Nares and oral mucosa pink and moist. Neck: trachea midline, no visible masses, no external lesions. CV: +S1/S2, RRR, no MRG. Resp: unlabored, CTAB no RRW. Abd: soft and nondistended. Nontender. Bowel sounds present. Musculoskeletal: Normal muscle tone and bulk. Neuro: cranial nerves II XII grossly intact. Intact gross motor and sensory function. Psych: appropriate mood/affect. Skin: no pallor. Condition: Stable. Discharged to: Home. Pertinent tests/labs/imaging: Chest x-ray: No upper abdominal bowel obstruction. Esophageal stent in excellent position. Abdomen x-ray: No significant air-fluid levels or free air identified. No evidence of obstruction. Medications: Continuing home medications, except holding glipizide since patient has had reduced oral intake of food and could have hyperglycemia. Holding aspirin since patient has severe acid reflux and recent stent placed in esophagus. Patient was told he could take up to 40 mg of omeprazole twice a day to help control acid reflux. Special instructions: Patient is to continue to monitor his blood sugar and blood pressure at home. He is to bring the results to his primary care physician for review and medication management. Follow up: Follow up with primary care physician Dr. Buchanan within 1-2 weeks. Follow up with oncologist Dr. Duran within 1 week. Less than 30 minutes of total time was spent on counseling and coordination of care for this patient's discharge.
== END 2016-06-09 18:16 | disposition home or self-care (01) | DRG 375 ==
LOC: INTOOBSV 07:22 → F1N 16:22 → OBSVTOIN 06-07 12:29
PROVIDERS: ADMIT Internal Medicine; ATTEND Internal Medicine
DX: C15.9 Malignant neoplasm of esophagus, unspecified (principal); C79.51 Secondary malignant neoplasm of bone; K21.9 Gastro-esophageal reflux disease without esophagitis; E11.9 Type 2 diabetes mellitus without complications; E78.5 Hyperlipidemia, unspecified; I25.10 Atherosclerotic heart disease of native coronary artery without angina pectoris; E66.9 Obesity, unspecified; Z68.37 Body mass index [BMI] 37.0-37.9, adult; Z95.1 Presence of aortocoronary bypass graft
CPT/HCPCS: G0378; J1170; J1650; J1815; J1885; J2405

== ENCOUNTER 2016-07-05 09:54 | Inpatient (IN) | payer OTHER ==
[2016-07-05] MEDS ORDERED: ONDANSETRON 4 MG/2 ML VIAL ONE (10:14)
[2016-07-05] MEDS ORDERED: ONDANSETRON DISINTEGRATING 4 MG TAB ONE (10:14)
[2016-07-05] MEDS ORDERED: NS 1,000 ML IV ONE (10:17)
[2016-07-05] MEDS ORDERED: ONDANSETRON 4 MG/2 ML VIAL IVP ONE (10:17)
[2016-07-05 10:49] LABS: % IMMATURE GRANULYOCYTES 0.7 % (0.0-1.1); ABSOLUTE IMMATURE GRANULOCYTES 0.03 10^3/uL (0.00-0.10); ADD DIFF? NO; ADD MORPH? NO; ADD SCAN? NO; ATYPICAL LYMPHOCYTE FLAG 0 (0-99); FRAGMENT RBC FLAG 0 (0-99); HEMATOCRIT 41.5 % (40.0-51.0); HEMOGLOBIN 14.9 g/dL (13.7-17.5); LEFT SHIFT FLG 10 (0-99); LIPEMIA HEMOLYSIS FLAG 90 (0-99); MEAN CELL HEMOGLOBIN 31.4 pg (27.9-34.1); MEAN CELL HEMOGLOBIN CONCENTR. 35.9 g/dL (32.4-36.7); MEAN CELL VOLUME 87.4 fL (81.5-99.8); MEAN PLATELET VOLUME 9.9 fL (8.7-11.7); PLATELET CLUMPS FLAG 0 (0-99); PLATELET COUNT 218 10^3/uL (150-400); RED BLOOD CELL COUNT 4.75 10^6/uL (4.40-6.38); RED CELL DISTRIBUTION WIDTH 12.7 % (11.5-15.2)
--- NOTE | 2016-07-05 10:49 | EDPHY ---
H & P Smoking Status: Former smoker Time Seen by Provider: 07/05/16 10:08 HPI/ROS: CHIEF COMPLAINT: Vomiting, history of esophageal cancer HISTORY OF PRESENT ILLNESS: 61-year-old male presents to the emergency department by private vehicle with his with multiple episodes of vomiting. The patient has a history of esophageal cancer and is currently undergoing chemotherapy. He has done weekly chemotherapy for the last 3 weeks. His last chemotherapy infusion was on Friday, 4 days ago. He has been vomiting since receiving chemotherapy although he states today he was much worse. He feels very weak. He has had ongoing chest pressure since his stent was placed May of 2016. He however his feeling more short of breath. He is also having more lateral rib pain. He has known stage IV esophageal cancer with mets to his femur and his shoulder that was visible on PET scan. He denies abdominal pain. His primary complaint is feeling nauseous and feeling very weak. No known fevers although he states that he has occasionally had "sweats". REVIEW OF SYSTEMS: Constitutional: Sweats as above. No fever, no chills. Eyes: No double or blurry vision. ENT: No sore throat. Respiratory: No cough, no shortness of breath. Cardiac: No chest pain. Gastrointestinal: No abdominal pain, vomiting or diarrhea. Genitourinary: No dysuria. Musculoskeletal: No neck or back pain. Skin: No rashes. Neurological: No headache. (Rubi Chan) Past Medical/Surgical History: Stage IV esophageal cancer with stent placement currently undergoing chemotherapy last infusion 4 days ago. History of coronary artery disease status post bypass graft, diabetes, BPH, dyslipidemia cholecystectomy (Rubi Chan) Social History: (Rubi Chan) Physical Exam: General Appearance: Alert, no distress. Blood pressure 125/86, heart rate 111, 96% on room air, temperature 36.5 Eyes: Pupils equal and round. Extraocular motions are all intact. ENT: Mouth: Mucous membranes moist. Respiratory: No wheezing, rhonchi, or rales, lungs are clear to auscultation. Cardiovascular: Regular rate and rhythm. Gastrointestinal: Abdomen is soft and nontender, no masses, no rebound or guarding, bowel sounds normal. Neurological: Alert and oriented x 3, cranial nerves II through XII grossly intact Skin: Warm and dry, no rashes. Musculoskeletal: Nontender to palpate along the cervical, thoracic or lumbar spine. Neck is supple. Extremities: Full range of motion and no peripheral edema. Calf nontender bilaterally. Psychiatric: Patient is oriented X 3, there is no agitation. (Rubi Chan) Constitutional: Initial Vital Signs Temperature (C) 36.5 C 07/05/16 09:59 Heart Rate 111 H 07/05/16 09:59 Respiratory Rate 18 07/05/16 09:59 Blood Pressure 125/86 H 07/05/16 09:59 O2 Sat (%) 96 07/05/16 09:59 O2 Delivery Mode Room Air Allergies/Adverse Reactions: No Known Allergies Allergy (Verified 05/24/15 16:01) Home Medications: Medication Instructions Recorded Atorvastatin Calcium [Lipitor 40 40 mg PO HS 06/06/16 mg (*)] Cholecalciferol Vit D3 [Vitamin D3 2,000 units PO DAILY 06/06/16 (*)] Lisinopril [Zestril 5 mg (*)] 5 mg PO HS 06/06/16 Metoprolol Tartrate [Lopressor 50 50 mg PO BID 06/06/16 mg (*)] Sitagliptin Phos/Metformin HCl 1 each PO BID 06/06/16 [Janumet 50-500 mg Tablet] Tamsulosin HCl [Flomax 0.4 MG (*)] 0.4 mg PO DAILY 06/06/16 Zolpidem Tartrate [Ambien Cr] 6.25 mg PO HS PRN 06/06/16 Multivitamins [Multivitamin (*)] 1 each PO DAILY 07/05/16 Omeprazole 40 mg PO BID 07/05/16 oxyCODONE CR [Oxycontin] 20 mg PO BID 07/05/16 oxyCODONE HCL [Oxycodone HCl] 5 mg PO TID PRN 07/05/16 Medical Decision Making - Diagnostics Imaging: CT pulmonary angiogram reveals no evidence of pulmonary embolism. There was however evidence of possible new metastasis to the right 6th rib. This was reported to me by Dr. Juan Barcenas. (Rubi Chan) ED Course/Re-evaluation: 61-year-old male presents to the emergency department feeling weak and dehydrated. He has vomited multiple times. He is currently undergoing chemotherapy for esophageal cancer. The patient appears acutely dehydrated. He received IV normal saline. He was given IV Zofran for nausea. The patient has ongoing rib pain since initiating chemotherapy. He has also had ongoing chest pain over the last 1 month. He however is feeling more newly short of breath. I was concerned about possible pulmonary embolism. CT pulmonary angiogram reveals no evidence of PE, however there is a new possible metastasis in the right 6th rib. Patient will be admitted to the hospitalist for further IV hydration and evaluation. (Rubi Chan) Differential Diagnosis: Weakness including but not limited to electrolyte abnormality, depression, anxiety, CVA, spinal cord abnormality, and infectious causes. (Rubi Chan) Other Provider: PHYSICIAN DOCUMENTATION: The patient was evaluated and managed by the Physician Dampener. My co- signature indicates that I have reviewed this chart and I agree with the findings and plan of care as documented. I am the secondary supervising physician. (Edenilson Madrigal) - Data Points Laboratory Results: Laboratory Results 07/05/16 10:40 07/05/16 10:40 07/05/16 07/05/16 10:40 10:40 WBC 4.04 10^3/uL 10^3/uL (3.80-9.50) RBC 4.75 10^6/uL 10^6/uL (4.40-6.38) Hgb 14.9 g/dL g/dL (13.7-17.5) Hct 41.5 % % (40.0-51.0) MCV 87.4 fL fL (81.5-99.8) MCH 31.4 pg pg (27.9-34.1) MCHC 35.9 g/dL g/dL (32.4-36.7) RDW 12.7 % % (11.5-15.2) Plt Count 218 10^3/uL 10^3/uL (150-400) MPV 9.9 fL fL (8.7-11.7) Neut % (Auto) 78.3 % H % (39.3-74.2) Lymph % (Auto) 14.6 % L % (15.0-45.0) [place] % (Auto) 4.5 % % (4.5-13.0) Eos % (Auto) 1.2 % % (0.6-7.6) Baso % (Auto) 0.7 % % (0.3-1.7) Nucleat RBC Rel Count 0.0 % % (0.0-0.2) Absolute Neuts (auto) 3.16 10^3/uL 10^3/uL (1.70-6.50) Absolute Lymphs (auto) 0.59 10^3/uL L 10^3/uL (1.00-3.00) Absolute Monos (auto) 0.18 10^3/uL L 10^3/uL (0.30-0.80) Absolute Eos (auto) 0.05 10^3/uL 10^3/uL (0.03-0.40) Absolute Basos (auto) 0.03 10^3/uL 10^3/uL (0.02-0.10) Absolute Nucleated RBC 0.00 10^3/uL 10^3/uL (0-0.01) Immature Gran % 0.7 % % (0.0-1.1) Immature Gran # 0.03 10^3/uL 10^3/uL (0.00-0.10) Sodium 130 mEq/L L mEq/L (134-144) Potassium 3.5 mEq/L mEq/L (3.5-5.2) Chloride 98 mEq/L mEq/L (97-110) Carbon Dioxide 21 mEq/l L mEq/l (22-31) Anion Gap 11 mEq/L mEq/L (8-16) BUN 14 mg/dL mg/dL (7-23) Creatinine 0.5 mg/dL L mg/dL (0.7-1.3) Estimated GFR > 60 Glucose 228 mg/dL H mg/dL (70-100) Calcium 8.6 mg/dL mg/dL (8.5-10.4) Medications Given: Discontinued Medications Sodium Chloride (Ns) 1,000 mls @ 0 mls/hr IV ONCE ONE PRN Reason: Wide Open Stop: 07/05/16 10:18 Last Admin: 07/05/16 10:46 Dose: 1,000 mls Ondansetron HCl (Zofran) 4 mg IVP EDNOW ONE Stop: 07/05/16 10:18 Last Admin: 07/05/16 10:46 Dose: 4 mg Departure - Departure Disposition: [facility] Inpatient Acute Clinical Impression: Dehydration Esophageal cancer Qualifiers: Malignant neoplasm of esophagus location: unspecified location Qualified Code(s ): C15.9 - Malignant neoplasm of esophagus, unspecified Dyspnea Qualifiers: Dyspnea type: unspecified Qualified Code(s): R06.00 - Dyspnea, unspecified Condition: Fair
[2016-07-05 11:28] LABS: ANION GAP 11 mEq/L (8-16); CALCIUM 8.6 mg/dL (8.5-10.4); CARBON DIOXIDE 21 mEq/l (22-31); CHLORIDE 98 mEq/L (97-110); CREATININE 0.5 mg/dL (0.7-1.3); GLOMERULAR FILTRATION RATE > 60; GLUCOSE 228 mg/dL (70-100); POTASSIUM 3.5 mEq/L (3.5-5.2); SODIUM 130 mEq/L (134-144)
[2016-07-05] MEDS ORDERED: IOPAMIDOL (ISOVUE 370) 100 ML BTL IV ONE (11:28)
[2016-07-05] MEDS ORDERED: PROMETHAZINE HCL 25 MG TAB PO PRN (13:24)
[2016-07-05] MEDS ORDERED: ONDANSETRON 4 MG/2 ML VIAL IVP PRN (13:24)
[2016-07-05] MEDS ORDERED: ONDANSETRON DISINTEGRATING 4 MG TAB PO PRN (13:24)
[2016-07-05] MEDS ORDERED: ACETAMINOPHEN 325 MG TAB PO PRN (13:24)
[2016-07-05] MEDS: NS 1,000 ML IV SCH ×2 (13:59→21:21)
[2016-07-05] MEDS: HYDROmorphONE/DILAUDID 1 MG/ML SYR IVP PRN ×2 (14:02→18:41)
[2016-07-05] MEDS ORDERED: fentaNYL 25 MCG PATCH TD SCH (14:30)
--- NOTE | 2016-07-05 14:50 | GHP ---
[f rep st] HISTORY AND PHYSICAL DATE OF ADMISSION: 07/05/2016 CHIEF COMPLAINT: Intractable nausea and vomiting. HISTORY OF PRESENT ILLNESS: The patient is a 61-year-old male with known stage IV esophageal cancer who presented to the emergency room with persistent vomiting and associated nausea. He is currently undergoing chemotherapy and has had chemotherapy for the last 3 weeks. This next week he will not be getting chemotherapy. He has been vomiting for the past week. He denies any hematemesis or coffee ground emesis. He has had an approximately 30-pound weight loss over the last 3 weeks. In addition, he is complaining of 'lung pain '. He says that when he breathes in or breathes out he has pain in his lungs, but he does not have any shortness of breath or chest pain. He does not have any fever, chills or associated diarrhea. What has helped him the most was receiving IV fluids in the emergency room. He also notes that the lung pain has been ongoing since he had an esophageal stent placed, but at this time he is not sure if this is the etiology of his pain on this admission. PAST MEDICAL HISTORY: 1. Esophageal cancer, status post chemotherapy and radiation. He is followed by Dr. Duran. Of note he has metastases to his femur and shoulder on PET scan. 2. Coronary artery disease, status post coronary artery bypass graft in 2003. He had this procedure done in [place]. 3. Type 2 diabetes. On oral agents. 4. BPH. 5. Hyperlipidemia. PAST SURGICAL HISTORY: 1. Cholecystectomy. 2. Appendectomy. 3. Tonsillectomy. 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 He does not smoke. He does not drink alcohol. He lives with his . He has 6 children. FAMILY HISTORY: His sister and mom both have breast cancer. ALLERGIES: No known allergies. HOME MEDICATIONS: Include multivitamin 1 tab daily, Janumet 1 tab b.i.d., Flomax 0.4 mg daily, metoprolol 50 mg p.o. b.i.d., lisinopril 5 mg p.o. at bedtime, vitamin D3 2000 units daily, OxyContin 20 mg p.o. b.i.d., Ambien 6.25 mg p.o. at bedtime p.r.n., and Oxy IR 5 mg p.o. t.i.d. p.r.n. REVIEW OF SYSTEMS: A 10-point review of systems was performed and was negative other than the pertinent positives in the history of present illness and past medical history. PHYSICAL EXAMINATION: GENERAL: The patient is a 61-year-old male who appears dehydrated and looks like he is indeed feeling poorly. VITAL SIGNS: Blood pressure is 127/94, heart rate is 98, respiratory rate is 18, O2 saturations on room air are 94%, temperature is 36.6 Celsius. HEENT: Eyes: Pupils are equal and reactive. EOMs are intact. No conjunctival injection noted. ENT: Normal ears. Hearing intact. Normal lips, teeth. Oral airway dry. NECK: Trachea is midline. CARDIOVASCULAR: He is in a regular rate and rhythm. No murmurs, rubs , or gallops noted. CHEST/LUNGS: Normal respiratory effort without wheezing, rales or rhonchi. ABDOMEN: Soft, nontender. No rebound. No guarding. SKIN: No rashes. Warm, dry and intact. MUSCULOSKELETAL: Equal upper lower extremity. PSYCHIATRIC: He appears to be alert and oriented. Normal mood and affect. Normal judgment and insight and normal memory. LABORATORY DATA: A CBC was performed. White blood cell count is 4.04, hemoglobin is 14.9, hematocrit 41.5, platelet count 218. Chemistry: Sodium is 130, potassium 3.5, chloride 98, CO2 21, BUN is 14, creatinine is 0.5, glucose is 228. A CTA was performed that shows no visible PE. He has new sclerosis in the right posterolateral 6th rib, suspicious for metastasis. He has a subacute incompletely healed midright clavicular fracture. He has stents spanning irregular thickening of the distal esophagus, compatible with the patient's known malignancy'; diastasis of the sternotomy and fractured sternotomy wires unchanged since May 2015. ASSESSMENT/PLAN: 1. Intractable nausea and vomiting. Will hydrate with saline and order antiemetics. Will do a trial of clear liquid diet to see if he can tolerate this. 2. Hyponatremia. This is likely secondary to poor oral intake. This should improve with hydration. Will recheck his labs in the morning. 3. Pain, especially in the lung area. He points to his rib area when I asked him. There is concern for suspicion of metastasis in the posterolateral 6th rib. Will support him with pain management. Oncologist to further evaluate his CT scan. 4. Chronic pain on continuous opioids. Since he is not able to take in adequate oral intake, will place him on p.r.n. Dilaudid and morphine. 5. Diabetes type 2. Will hold his oral diabetic medications at this time. Will place him on a sliding scale since he is hyperglycemic. 6. Coronary artery disease, status post coronary artery bypass surgery. Resume his metoprolol, LIMA inhibitor and statin when he improves. 7. Code status. Full. 8. Deep venous thrombosis prophylaxis. He is at high risk. Will place him on subcutaneous low molecular weight heparin. LENGTH OF STAY: He will likely require less than a 2 midnight stay to address his dehydration. If he is not more improved in the morning, this can be readdressed. /[id number]/MODL MTDD
[2016-07-05] MEDS: LORazepam 1 MG TAB PO PRN (15:03)
[2016-07-05] MEDS: METOPROLOL TARTRATE 50 MG TAB PO SCH ×2 (15:19→20:14)
--- NOTE | 2016-07-05 15:35 | GCON ---
[f rep st] CONSULTATION INPATIENT ONCOLOGY CONSULTATION DATE OF CONSULTATION: 07/05/2016 REFERRING PHYSICIAN: Kiara Yusuf NP OUTPATIENT ONCOLOGIST: Mayo Duran MD. REASON FOR CONSULTATION: Pain and nausea in a patient with esophageal cancer. HISTORY OF PRESENT ILLNESS: The patient is a 61-year-old man with metastatic HER2-positive esophage al cancer. He initially presented in 2014 with locally advanced disease of the gastroesophageal junc tion, as well as a solitary metastasis to the left femur. He received chemotherapy with Taxotere, ca rboplatin, and Herceptin, followed by maintenance Herceptin, and had radiation to the bone lesion. Ismael rose developed a new right clavicular metastasis in 2015, which was radiated. In May 2016, he bega n to have some dysphagia. Endoscopy revealed local recurrence of his cancer. An esophageal stent was placed. Since then, he has had significant pain, which he describes as bilaterally in the ribs. He restarted chemotherapy with Ramucirumab and Taxol given weekly. Cycle 1, day 15 was July 01. He co mes in today through the emergency department with increasing pain and also nausea. CT angiogram did not reveal a pulmonary embolism. There was a left posterior lateral 6th rib sclerotic lesion suspic ious for new metastasis that was not previously seen in the most recent study in May. He has tr ied Zofran with little effect. He was recently changed to oxycodone, but continues to have pain. The pain is fairly constant. It is not associated with meals. PAST MEDICAL HISTORY: 1. Coronary artery disease, bypass grafting in 2003. 2. Diabetes. 3. Hypertension. CURRENT MEDICATIONS: Lovenox, Dilaudid, Lopressor, morphine. ALLERGIES: No known drug allergies. FAMILY HISTORY: Noncontributory. SOCIAL HISTORY: He quit smoking a number of years ago. He reports no alcohol use. REVIEW OF SYSTEMS: Aside from pertinent positives noted in the HPI, a 14-point review of systems is negative. PHYSICAL EXAMINATION: VITAL SIGNS: His temperature was 36.6, blood pressure 112/94, oxygen saturati on 94% on room air, heart rate 98. GENERAL: He was moderately uncomfortable, though in no acute dist ress. HEENT: Sclerae anicteric. Oropharynx is clear. NECK: Supple without lymphadenopathy. LUNGS: Cl ear to auscultation bilaterally. CARDIAC : Regular rate and rhythm. No murmurs, gallops, rubs. ABDOM EN: Normal bowel sounds. Nontender, nondistended. EXTREMITIES: Without edema. 2+ pulses. NEUROLOGIC: He is alert and oriented x3. Strength and sensation were normal. LABORATORY DATA: White count 4.04, hemoglobin 14.9, platelets of 218. Sodium 130, potassium 3.5, c hloride 98, bicarb 21, BUN 14, creatinine 0.5. IMPRESSION: This is a 61-year-old man with locally recurrent esophageal cancer, also metastatic to bone. He is currently receiving chemotherapy with Ramucirumab and Taxol. The etiology of his symptom s are unclear. He could have more bony metastases than are appreciated on the CT scans. This could b e referred pain from the esophagus. RECOMMENDATIONS: 1. I will add Carafate in the event that this could be due to the primary tumor. I also think he wo uld benefit from a fentanyl patch for more dedero-[id number]-[id number] pain relief, and also Ativan as an alter [place] to [employer], which has not been that effective for him. 2. I will get a bone scan to evaluate the possibility that he has worsening bony metastatic disease . It is probably too early to say if the current line of therapy is working or not, even if addition al bone metastases are noted. Thank you for this consultation. We will continue to follow patient with you closely while he is in the hospital. /[id number]/MODL
[2016-07-05] MEDS ORDERED: D50W 25 GM/50 ML SYR IVP PRN (17:04)
[2016-07-05] MEDS: INSULIN LISPRO 100 UNIT/ML SC SCH (18:32)
[2016-07-05] MEDS: SUCRALFATE 1 GM/10 ML UDCUP PO SCH ×2 (18:33→20:11)
[2016-07-05] MEDS: LISINOPRIL 5 MG TAB PO SCH (20:10)
[2016-07-06] MEDS: HYDROmorphONE/DILAUDID 1 MG/ML SYR IVP PRN ×6 (00:38→23:53)
[2016-07-06] MEDS: NS 1,000 ML IV SCH ×3 (05:29→19:43)
[2016-07-06] MEDS: LORazepam 2 MG/ML INJ IVP PRN (05:30)
[2016-07-06 06:45] LABS: % IMMATURE GRANULYOCYTES 0.9 % (0.0-1.1); ABSOLUTE IMMATURE GRANULOCYTES 0.03 10^3/uL (0.00-0.10); ADD DIFF? NO; ADD MORPH? NO; ADD SCAN? NO; ATYPICAL LYMPHOCYTE FLAG 0 (0-99); FRAGMENT RBC FLAG 0 (0-99); HEMATOCRIT 39.7 % (40.0-51.0); LEFT SHIFT FLG 20 (0-99); LIPEMIA HEMOLYSIS FLAG 90 (0-99); MEAN CELL HEMOGLOBIN CONCENTR. 35.3 g/dL (32.4-36.7); MEAN CELL VOLUME 90.6 fL (81.5-99.8); MEAN PLATELET VOLUME 9.5 fL (8.7-11.7); PLATELET CLUMPS FLAG 10 (0-99); PLATELET COUNT 187 10^3/uL (150-400); RED BLOOD CELL COUNT 4.38 10^6/uL (4.40-6.38); RED CELL DISTRIBUTION WIDTH 13.1 % (11.5-15.2)
[2016-07-06 07:00] LABS: ALANINE AMINOTRANSFERASE 44 IU/L (21-72); ALBUMIN 3.1 g/dL (3.5-5.0); ALKALINE PHOSPHATASE 86 IU/L (38-126); ANION GAP 8 mEq/L (8-16); ASPARTATE AMINOTRANSFERASE 22 IU/L (17-59); BILIRUBIN,TOTAL 1.3 mg/dL (0.1-1.4); CALCIUM 8.2 mg/dL (8.5-10.4); CARBON DIOXIDE 22 mEq/l (22-31); CHLORIDE 101 mEq/L (97-110); CREATININE 0.5 mg/dL (0.7-1.3); GLOMERULAR FILTRATION RATE > 60; GLUCOSE 170 mg/dL (70-100); POTASSIUM 3.3 mEq/L (3.5-5.2); SODIUM 131 mEq/L (134-144); TOTAL PROTEIN 5.8 g/dL (6.3-8.2)
[2016-07-06] MEDS: SUCRALFATE 1 GM/10 ML UDCUP PO SCH ×4 (08:56→19:41)
[2016-07-06] MEDS: ENOXAPARIN 40 MG/0.4 ML SYR SC SCH (08:56)
[2016-07-06] MEDS: INSULIN LISPRO 100 UNIT/ML SC SCH ×3 (08:56→18:50)
[2016-07-06] MEDS: METOPROLOL TARTRATE 50 MG TAB PO SCH ×2 (08:56→19:40)
--- NOTE | 2016-07-06 10:28 | SOAPPROG ---
SOAP Progress Note Assessment/Plan: Assessment: 1.) Esophageal Carcinoma on weekly Paclitaxel + Cyrramza with increase GI sx. and increased bone pain (R rib) Continue limited diet, analgesics, follow up of sx. and VS and Labs. Bone scan on Friday, 07/08 to assess for possibly new metastatic skeletal disease. Plan: See above comments. 07/06/16 10:26 Subjective: Pain better with fentanyl patch, nausea present but better No diarrhea or emesis Objective: VSS as noted here HEENT- anicteric,no oral lesions Neck- supple Chest- clear anteriorly Mediport- accessed/NT CVS- RSR, no extra HS ABD- soft, NT, no mass or ascites, BS+ EXT- no edema, skin intact Labs noted here: Vital Signs Temp Pulse Resp BP Pulse Ox 36.6 C 101 H 16 143/90 H 92 07/06/16 08:42 07/06/16 08:56 07/06/16 08:42 07/06/16 08:56 07/06/16 08:42 Laboratory Results 07/06/16 06:39 07/06/16 06:39 07/05/16 07/06/16 07/07/16 05:59 05:59 05:59 Intake Total 3811 Output Total 500 Balance 3311 ICD10 Worksheet Patient Problems: Problems Problem Status Onset Dehydration Acute Dyspnea Acute Esophageal cancer Acute Vomiting Acute
--- NOTE | 2016-07-06 11:11 | HOSPPROG ---
Hospitalist Progress Note Assessment/Plan: # Intractable nausea and vomiting- suspect2/2 chemotherapy and underlying malignancy- improved overnight - continue pain control - continue IV hydration - continue promethazine and Zofran # hypovolemic hyponatremia- ->131 this a.m. - continue IV fluids - follow daily # metastatic esophageal carcinoma- known metastases to the shoulder and femur - patient with new rib and back pain CTA chest (personally reviewed and interpreted) shows bony changes concerning for possible rib metastases on right - continue chemotherapy regimen per Oncology - bone scan planned for 07/08 # right-sided chest and back pain- as above concerning for new metastases- bone scan planned- pain improved overnight oxygen saturations 94% on room air - continue fentanyl patch and p.r.n. IV/po narcotics # prophylaxis Lovenox # diet as tolerated # disposition greater than 2 midnights as the patient is requiring ongoing medication titration for pain and nausea I have discussed the case with Oncology- we will continue with current Course today and plan for bone scan on Friday Subjective: pain and nausea both improved Objective: Vital Signs Temp Pulse Resp BP Pulse Ox 36.6 C 101 H 16 143/90 H 92 07/06/16 08:42 07/06/16 08:56 07/06/16 08:42 07/06/16 08:56 07/06/16 08:42 Laboratory Results 07/06/16 06:39 07/06/16 06:39 07/05/16 07/06/16 07/07/16 05:59 05:59 05:59 Intake Total 3811 Output Total 500 Balance 3311 - Physical Exam Constitutional: appears nourished Eyes: anicteric sclera Ears, Nose, Mouth, Throat: dry mucous membranes Cardiovascular: regular rate and rhythym Respiratory: no respiratory distress, no rales or rhonchi Gastrointestinal: normoactive bowel sounds, soft, non-tender abdomen Genitourinary: no bladder fullness Skin: warm, normal color Musculoskeletal: No asymmetric calves Neurologic: AAOx3 Psychiatric: depressed Lymph, Heme, Immunologic: no cervical LAD ICD10 Worksheet Patient Problems: Problems Problem Status Onset Dehydration Acute Dyspnea Acute Esophageal cancer Acute Vomiting Acute
[2016-07-06] MEDS: LISINOPRIL 5 MG TAB PO SCH (19:41)
[2016-07-06] MEDS: LORazepam 1 MG TAB PO PRN (21:40)
[2016-07-06] MEDS: TAMSULOSIN HCL 0.4 MG CAP PO SCH (21:58)
[2016-07-07] MEDS: LORazepam 2 MG/ML INJ IVP PRN (01:20)
[2016-07-07] MEDS: HYDROmorphONE/DILAUDID 1 MG/ML SYR IVP PRN ×9 (03:57→21:50)
[2016-07-07 05:18] LABS: ANION GAP 8 mEq/L (8-16); CALCIUM 7.8 mg/dL (8.5-10.4); CARBON DIOXIDE 23 mEq/l (22-31); CHLORIDE 103 mEq/L (97-110); CREATININE 0.5 mg/dL (0.7-1.3); GLOMERULAR FILTRATION RATE > 60; GLUCOSE 175 mg/dL (70-100); POTASSIUM 3.5 mEq/L (3.5-5.2); SODIUM 134 mEq/L (134-144)
[2016-07-07] MEDS: SUCRALFATE 1 GM/10 ML UDCUP PO SCH ×4 (08:25→19:52)
[2016-07-07] MEDS: METOPROLOL TARTRATE 50 MG TAB PO SCH ×2 (08:25→21:50)
[2016-07-07] MEDS: ENOXAPARIN 40 MG/0.4 ML SYR SC SCH (08:25)
[2016-07-07] MEDS: TAMSULOSIN HCL 0.4 MG CAP PO SCH (08:26)
[2016-07-07] MEDS: INSULIN LISPRO 100 UNIT/ML SC SCH ×3 (08:26→17:28)
[2016-07-07 08:38] VITALS: RESP 16
[2016-07-07] MEDS ORDERED: fentaNYL 50 MCG PATCH TD SCH (09:30)
--- NOTE | 2016-07-07 10:14 | SOAPPROG ---
SOAP Progress Note Assessment/Plan: Assessment: 1.) Esophageal Carcinoma on weekly Paclitaxel + Cyrramza with increase GI sx. and increased bone pain (R rib) Continue limited diet, analgesics, follow up of sx. and VS and Labs. Bone scan on Friday, 07/08 to assess for possibly new metastatic skeletal disease. Fentanyl increased from 25 to 50. Will add ibuprofen 600 mg prn Q 6 hours as d/w patient this AM. Plan: See above comments. 07/07/16 10:13 Subjective: Still with significant bone pain over ribs- pain is similar to the bone pain he experienced with other bone mets, treated with XRT in the past. Diarrhea is better. Objective: VSS as noted here. Afebrile. Pt looks a bit uncomfortable, but in NAD Sitting upright at the bedside eating breakfast. HEENT- anicteric, no thrush Neck - supple Chest- clear CVS- RSR, no extra HS EXT- no edema. Labs as noted here. Glu 175 Vital Signs Temp Pulse Resp BP Pulse Ox 36.4 C 116 H 16 114/88 H 91 L 07/07/16 08:00 07/07/16 08:25 07/07/16 08:00 07/07/16 08:25 07/07/16 08:00 Laboratory Results 07/07/16 04:40 07/06/16 07/07/16 07/08/16 05:59 05:59 05:59 Intake Total 1562.5 Output Total 650 Balance 912.5 ICD10 Worksheet Patient Problems: Problems Problem Status Onset Dehydration Acute Dyspnea Acute Esophageal cancer Acute Vomiting Acute
--- NOTE | 2016-07-07 10:43 | HOSPPROG ---
Hospitalist Progress Note Assessment/Plan: # right-sided chest and back pain-concerning for new metastases- pain terrible overnight - patient unable to sleep CTA chest (personally reviewed and interpreted) negative for pulmonary embolism- oxygen saturations 91% on room air - increase fentanyl patch to 50mcg - cont p.r.n. IV narcotics # intermittent tachycardia - suspect 2/2 pain - consider EKG if persists - cont pain control and IVF # Intractable nausea and vomiting- suspect2/2 chemotherapy and underlying malignancy- improved overnight - continue pain control - continue IV hydration - continue promethazine and Zofran # hypovolemic hyponatremia- [id number] this a.m. with IV hydration - continue IV fluids while PO limited - follow daily # metastatic esophageal carcinoma- known metastases to the shoulder and femur - patient with new rib and back pain - continue chemotherapy regimen per Oncology - bone scan planned for 07/08 # prophylaxis Lovenox # diet as tolerated # disposition greater than 2 midnights as the patient is requiring ongoing medication titration for pain and nausea I have discussed the case with RN - will uptitrate Fentanyl patch today and continue IV pain meds - encouraging PO Subjective: very down and tired Objective: Vital Signs Temp Pulse Resp BP Pulse Ox 36.4 C 116 H 16 114/88 H 91 L 07/07/16 08:00 07/07/16 08:25 07/07/16 08:00 07/07/16 08:25 07/07/16 08:00 Laboratory Results 07/07/16 04:40 07/06/16 07/07/16 07/08/16 05:59 05:59 05:59 Intake Total 1562.5 Output Total 650 Balance 912.5 - Physical Exam Constitutional: appears nourished Eyes: anicteric sclera Ears, Nose, Mouth, Throat: dry mucous membranes Cardiovascular: regular rate and rhythym, tachycardia Respiratory: no respiratory distress, no rales or rhonchi Gastrointestinal: normoactive bowel sounds, soft, non-tender abdomen Genitourinary: no bladder fullness Skin: warm, normal color Musculoskeletal: No asymmetric calves Neurologic: AAOx3 Psychiatric: depressed, flat affect Lymph, Heme, Immunologic: no cervical LAD ICD10 Worksheet Patient Problems: Problems Problem Status Onset Dehydration Acute Dyspnea Acute Esophageal cancer Acute Vomiting Acute
[2016-07-07] MEDS: PANTOPRAZOLE SODIUM 40 MG TAB PO SCH ×2 (10:57→19:52)
[2016-07-07] MEDS: NS 1,000 ML IV SCH (17:28)
[2016-07-07] MEDS: LISINOPRIL 5 MG TAB PO SCH (19:52)
[2016-07-07] MEDS: IBUPROFEN 600 MG TAB PO PRN (19:52)
[2016-07-07] MEDS ORDERED: NON-FORMULARY NEW DRUG (Omeprazole [Omeprazole] 40 MG) PO SCH (21:00)
[2016-07-07] MEDS: LORazepam 1 MG TAB PO PRN (21:50)
[2016-07-08] MEDS: NS 1,000 ML IV SCH ×2 (00:16→07:53)
[2016-07-08] MEDS: HYDROmorphONE/DILAUDID 1 MG/ML SYR IVP PRN ×3 (02:58→09:33)
[2016-07-08 06:49] LABS: ANION GAP 4 mEq/L (8-16); CALCIUM 7.9 mg/dL (8.5-10.4); CARBON DIOXIDE 26 mEq/l (22-31); CHLORIDE 106 mEq/L (97-110); CREATININE 0.5 mg/dL (0.7-1.3); GLOMERULAR FILTRATION RATE > 60; GLUCOSE 144 mg/dL (70-100); POTASSIUM 3.2 mEq/L (3.5-5.2); SODIUM 136 mEq/L (134-144)
[2016-07-08] MEDS: SUCRALFATE 1 GM/10 ML UDCUP PO SCH ×3 (07:45→18:03)
[2016-07-08] MEDS ORDERED: POTASSIUM CL 20 MEQ TAB PO ONE (08:31)
[2016-07-08] MEDS: METOPROLOL TARTRATE 50 MG TAB PO SCH (09:32)
[2016-07-08] MEDS: PANTOPRAZOLE SODIUM 40 MG TAB PO SCH (09:32)
[2016-07-08] MEDS: TAMSULOSIN HCL 0.4 MG CAP PO SCH (09:32)
[2016-07-08] MEDS: ENOXAPARIN 40 MG/0.4 ML SYR SC SCH (09:33)
[2016-07-08] MEDS: IBUPROFEN 600 MG TAB PO PRN (09:37)
[2016-07-08] MEDS ORDERED: POLYETHYLENE GLYCOL 3350 17 GM PKT PO PRN (10:17)
[2016-07-08] MEDS ORDERED: LACTULOSE 20 GM/30 ML UDCUP PO PRN (10:17)
[2016-07-08] MEDS ORDERED: BISACODYL 10 MG SUPP PR PRN (10:17)
[2016-07-08] MEDS ORDERED: MAGNESIUM HYDROXIDE 30 ML UDCUP PO PRN (10:17)
[2016-07-08] MEDS: morphINE 10 MG/0.5 ML UDSYR PO PRN ×3 (11:03→18:03)
[2016-07-08] MEDS: POTASSIUM Cl (KCl) 100 ML IV SCH ×4 (11:05→16:42)
[2016-07-08 12:25] VITALS: O2SAT 95
[2016-07-08] MEDS: INSULIN LISPRO 100 UNIT/ML SC SCH ×3 (13:13→18:04)
[2016-07-08] MEDS ORDERED: STERILE WATER INJ 20 ML VIAL MISC ONE (14:00)
[2016-07-08] MEDS ORDERED: ALTEPLASE 2 MG VIAL IV ONE (14:00)
--- NOTE | 2016-07-08 14:42 | SOAPPROG ---
SOAP Progress Note Assessment/Plan: E&M for Esophageal CA * Esophageal Carcinoma on weekly Paclitaxel + Cyrramza with increased bone pain (R post rib): bone scan abnormal in the region and a new region in the femur. Pain medications are being adjusted and when comfortable can go home. He may benefit from palliative radiation to the sites. I will send a message to Dr. Duran. Subjective: Pain in right back near scapula and RUQ. Little better controlled with change in meds. Objective: Vital Signs Temp Pulse Resp BP Pulse Ox 36.3 C 81 16 127/79 H 95 07/08/16 12:23 07/08/16 12:23 07/08/16 12:23 07/08/16 12:23 07/08/16 12:23 Laboratory Results 07/08/16 05:30 07/07/16 07/08/16 07/09/16 05:59 05:59 05:59 Intake Total 1562.5 3883 Output Total 650 450 Balance 912.5 3433 Nuclear Medicine Whole Body Bone Scan 1051 hours Impression: 1. Increase in degree of uptake associated with right mid clavicle. Review of recent CT imaging demonstrates sclerotic lesion within the medullary portion of the right clavicle with associated fracture. Rule out osseous metastatic lesion with pathologic fracture versus less likely posttraumatic fracture. Clinical correlation recommended. 2. New focus of increased uptake posterior lateral right sixth rib that corresponds with subtle small sclerotic lesion on recent CT imaging. This probably corresponds with location of pain. 3. New focus of increased uptake mid shaft left femur just distal to focus of uptake previously identified in the proximal shaft left femur. The patient apparently is asymptomatic in this location. 4. No significant uptake mid thoracic spine to correspond with tenderness in this region. Dictated By: Aung Lutz MD Physical Exam - Physical Exam General Appearance: no apparent distress Respiratory: normal breath sounds Cardiac/Chest: regular rate, rhythm ICD10 Worksheet Patient Problems: Problems Problem Status Onset Dehydration Acute Dyspnea Acute Esophageal cancer Acute Vomiting Acute
[2016-07-08 16:51] VITALS: BP 125/83; PULSE 89; TEMP 97.6
--- NOTE | 2016-07-08 19:26 | GDS ---
[f rep st] DISCHARGE SUMMARY DISCHARGE DIAGNOSES: Include: 1. Nausea and vomiting thought secondary to pain and chemotherapy, resolved. 2. Right-sided chest and back pain, secondary to new bony metastases. 3. Tachycardia, secondary to pain and volume depletion. 4. Hypovolemic hyponatremia. 5. Metastatic esophageal carcinoma, with known bony metastases to the shoulder and femur. HISTORY OF PRESENT ILLNESS: This is a 61-year-old male who presents with acute right-sided chest an d back pain. For details of patient's initial presentation, please see the history and physical hernando ed 07/05/2016. CONSULTATIVE SERVICES: Include Oncology. PROCEDURES: On 07/08/2016, patient had a bone scan performed that did show new foci of increased up take in the lateral right 6th rib, as well as a new focus of uptake in the left femur shaft. HOSPITAL COURSE: By issue: 1. Intractable nausea and vomiting. The patient was aggressively fluid resuscitated, treated with IV antiemetics, and slowly advanced on a diet. He is tolerating regular p.o. on the day of disposit ion. Continue to encourage hydration, and pain control in the outpatient setting. 2. Severe right chest and back pain identified to be new bony metastases. We increased the patient 's pain regimen with a fentanyl patch 50 mcg q.72 hours, and p.r.n. Roxanol. He is to follow in 7-1 0 days in the outpatient setting with his primary oncology team for continued monitoring of his meta static bone pain. 3. Metastatic esophageal carcinoma. Patient is being followed very closely by [facility], and will inés nue to do so post disposition. 4. Hypovolemic hyponatremia. Patient was fluid resuscitated, had normalization of his sodium on day of disposition. DISCHARGE MEDICATIONS: Please reference medication reconciliation printed on 07/08/2016. FOLLOWUP APPOINTMENTS: Include with [facility] in the next week's time for his first post disposition fol lowup. PENDING STUDIES: At the time of this dictation are none. TIME SPENT: I spent greater than 30 minutes in the planning and coordination of this discharge. /[id number]/MODL
[2016-07-08] MEDS ORDERED: SENNOSIDES/DOCUSATE SODIUM TAB PO SCH (21:00)
== END 2016-07-08 18:26 | disposition home or self-care (01) | DRG 543 ==
LOC: INTOOBSV 11:19 → F1N 12:53 → OBSVTOIN 07-06 11:18
PROVIDERS: ADMIT Nurse Practitioner Family; ATTEND Hospitalist
DX: C79.51 Secondary malignant neoplasm of bone (principal); E87.1 Hypo-osmolality and hyponatremia; C15.5 Malignant neoplasm of lower third of esophagus; E86.0 Dehydration; E86.1 Hypovolemia; R11.2 Nausea with vomiting, unspecified; T45.1X5A Adverse effect of antineoplastic and immunosuppressive drugs, initial encounter; G89.3 Neoplasm related pain (acute) (chronic); F11.20 Opioid dependence, uncomplicated; I25.10 Atherosclerotic heart disease of native coronary artery without angina pectoris; E11.9 Type 2 diabetes mellitus without complications; N40.0 Benign prostatic hyperplasia without lower urinary tract symptoms; E78.5 Hyperlipidemia, unspecified; Z95.1 Presence of aortocoronary bypass graft; Z79.84 Long term (current) use of oral hypoglycemic drugs; Z80.3 Family history of malignant neoplasm of breast
CPT/HCPCS: 96374; A9503; G0378; J1170; J1642; J1650; J1815; J2060; J2405; Q9967

== ENCOUNTER 2016-08-17 10:45 | Inpatient (IN) | payer OTHER ==
[2016-08-17] MEDS ORDERED: ONDANSETRON 4 MG/2 ML VIAL ONE (11:09)
[2016-08-17] MEDS ORDERED: HYDROmorphONE/DILAUDID 1 MG/ML SYR IVP ONE (11:37)
[2016-08-17] MEDS ORDERED: NS 1,000 ML IV ONE ×2 (11:37)
--- NOTE | 2016-08-17 11:40 | EDPHY ---
H & P Stated Complaint: stage $4 esoph ca--needs symptom control for bk pain , n/v weakness Time Seen by Provider: 08/17/16 10:59 HPI/ROS: CHIEF COMPLAINT: Nausea, vomiting, and uncontrolled pain in patient with stage IV esophageal cancer HISTORY OF PRESENT ILLNESS: The patient presents to the ED with nausea, vomiting and uncontrolled pain. The patient has a history of stage IV esophageal cancer with metastases to his bones. The patient has had a number of hospitalizations this year for similar symptoms. He has been attempting to manage his symptoms at home with Ativan, clonidine, Zofran and morphine. The patient reportedly has vomited 12 times today. The patient feels generally weak from presumed dehydration. Patient is currently receiving chemotherapy. The patient denies fever, cough or congestion. The patient does complain of constipation. The patient states his symptoms are moderate to severe in nature. REVIEW OF SYSTEMS: A comprehensive 10 point review of systems is otherwise negative aside from elements mentioned in the history of present illness. Source: Patient Exam Limitations: No limitations - Personal History Current Tetanus/Diphtheria Vaccine: Unsure Current Tetanus Diphtheria and Acellular Pertussis (TDAP): Unsure - Medical/Surgical History Hx Asthma: No Hx Chronic Respiratory Disease: No Hx Diabetes: Yes Hx Cardiac Disease: Yes Hx Renal Disease: No Hx Cirrhosis: No Hx Alcoholism: No Hx HIV/AIDS: No Hx Splenectomy or Spleen Trauma: No Other PMH: esophogeal CA stage 4--iv chemo and radiation currently, HTN, high chol, GERD, DMII. PSH: esophogeal stent, CABG, tonsilectomy, appy, choly - Social History Smoking Status: Former smoker - Physical Exam Exam: General Appearance: Alert, no distress Eyes: Pupils equal and round no pallor or injection ENT, Mouth: Mucous membranes moist Respiratory: There are no retractions, lungs are clear to auscultation, port to chest wall Cardiovascular: Slight tachycardia Gastrointestinal: Abdomen is soft and nontender, no masses, bowel sounds normal Neurological: A&O, normal motor function, normal sensory exam, normal cranial nerves Skin: Warm and dry, no rashes Musculoskeletal: Neck is supple nontender Extremities: symmetrical, full range of motion P Constitutional: Initial Vital Signs Temperature (C) 36.8 C 08/17/16 10:49 Heart Rate 87 08/17/16 10:49 Respiratory Rate 16 08/17/16 10:49 Blood Pressure 155/102 H 08/17/16 10:49 O2 Sat (%) 97 08/17/16 10:49 O2 Delivery Mode Room Air Allergies/Adverse Reactions: No Known Allergies Allergy (Verified 05/24/15 16:01) Home Medications: Medication Instructions Recorded Atorvastatin Calcium [Lipitor 40 40 mg PO HS 06/06/16 mg (*)] Cholecalciferol Vit D3 [Vitamin D3 2,000 units PO DAILY 06/06/16 (*)] Lisinopril [Zestril 5 mg (*)] 5 mg PO HS 06/06/16 Metoprolol Tartrate [Lopressor 50 50 mg PO BID 06/06/16 mg (*)] Sitagliptin Phos/Metformin HCl 1 each PO BID 06/06/16 [Janumet 50-500 mg Tablet] Tamsulosin HCl [Flomax 0.4 MG (*)] 0.4 mg PO DAILY 06/06/16 Zolpidem Tartrate [Ambien Cr] 6.25 mg PO HS PRN 06/06/16 Multivitamins [Multivitamin (*)] 1 each PO DAILY 07/05/16 Omeprazole 40 mg PO BID 07/05/16 Ondansetron Odt [Zofran Odt 4 mg 4 mg PO Q4HRS PRN #30 tab 07/08/16 (*)] fentaNYL [Duragesic 50 MCG Patch 50 mcg TD Q72H #10 patch 07/08/16 (*)] morphINE [Roxanol 10 mg/0.5 ml 5 mg PO Q2HRS PRN #60 udsyr 07/08/16 oral soln (*)] Medical Decision Making - Diagnostics EKG Interpretation: EKG: Complete interpretation has been separately recorded in the [email or web address] archive. Summary impression: Sinus rhythm, nonspecific T-wave flattening noted , artifact noted in lead V2, slightly prolonged QT interval ED Course/Re-evaluation: I reviewed the patient's past medical records. The patient had an IV established. He received 2 L of normal saline, 4 mg of IV Zofran and 1 mg of IV Dilaudid. The patient does have evidence of dehydration and metabolic abnormality with hypokalemia. The patient does have some mild QT prolongation noted on his EKG. The patient did receive IV potassium replacement in the emergency department. The patient will require admission to the hospital. Consultation is made with the hospitalist service. The patient will be admitted by Dr. Bronson Montoya. 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 Differential Diagnosis: Differential diagnosis considered includes dehydration, renal failure, metabolic abnormality - Data Points Laboratory Results: Laboratory Results 08/17/16 11:20 08/17/16 11:20 08/17/16 08/17/16 11:20 11:20 WBC 2.55 10^3/uL L 10^3/uL (3.80-9.50) RBC 4.19 10^6/uL L 10^6/uL (4.40-6.38) Hgb 13.2 g/dL L g/dL (13.7-17.5) Hct 39.0 % L % (40.0-51.0) MCV 93.1 fL fL (81.5-99.8) MCH 31.5 pg pg (27.9-34.1) MCHC 33.8 g/dL g/dL (32.4-36.7) RDW 14.3 % % (11.5-15.2) Plt Count 91 10^3/uL L 10^3/uL (150-400) MPV 10.6 fL fL (8.7-11.7) Neut % (Auto) 68.1 % % (39.3-74.2) Lymph % (Auto) 20.4 % % (15.0-45.0) [place] % (Auto) 7.5 % % (4.5-13.0) Eos % (Auto) 2.0 % % (0.6-7.6) Baso % (Auto) 1.2 % % (0.3-1.7) Nucleat RBC Rel Count 0.0 % % (0.0-0.2) Absolute Neuts (auto) 1.74 10^3/uL 10^3/uL (1.70-6.50) Absolute Lymphs (auto) 0.52 10^3/uL L 10^3/uL (1.00-3.00) Absolute Monos (auto) 0.19 10^3/uL L 10^3/uL (0.30-0.80) Absolute Eos (auto) 0.05 10^3/uL 10^3/uL (0.03-0.40) Absolute Basos (auto) 0.03 10^3/uL 10^3/uL (0.02-0.10) Absolute Nucleated RBC 0.00 10^3/uL 10^3/uL (0-0.01) Immature Gran % 0.8 % % (0.0-1.1) Immature Gran # 0.02 10^3/uL 10^3/uL (0.00-0.10) Sodium 137 mEq/L mEq/L (134-144) Potassium 2.8 mEq/L L mEq/L (3.5-5.2) Chloride 110 mEq/L mEq/L (97-110) Carbon Dioxide 21 mEq/l L mEq/l (22-31) Anion Gap 6 mEq/L L mEq/L (8-16) BUN 8 mg/dL mg/dL (7-23) Creatinine 0.3 mg/dL L mg/dL (0.7-1.3) Estimated GFR > 60 Glucose 135 mg/dL H mg/dL (70-100) Calcium 6.8 mg/dL L mg/dL (8.5-10.4) Medications Given: Discontinued Medications Hydromorphone HCl (Dilaudid) 1 mg IVP EDNOW ONE Stop: 08/17/16 11:38 Last Admin: 08/17/16 11:47 Dose: 1 mg Sodium Chloride (Ns) 1,000 mls @ 0 mls/hr IV ONCE ONE PRN Reason: Wide Open Stop: 08/17/16 11:38 Last Admin: 08/17/16 11:39 Dose: 1,000 mls Sodium Chloride (Ns) 1,000 mls @ 0 mls/hr IV ONCE ONE PRN Reason: Wide Open Stop: 08/17/16 11:38 Last Admin: 08/17/16 12:01 Dose: Not Given Departure - Departure Disposition: [facility] Acute Clinical Impression: Esophageal cancer, Dehydration, Hypokalemia Condition: Fair Referrals: Zeke Buchanan MD [Primary Care Provider] - As per Instructions
[2016-08-17 11:46] LABS: % IMMATURE GRANULYOCYTES 0.8 % (0.0-1.1); ABSOLUTE IMMATURE GRANULOCYTES 0.02 10^3/uL (0.00-0.10); ADD DIFF? NO; ADD MORPH? NO; ADD SCAN? NO; ATYPICAL LYMPHOCYTE FLAG 10 (0-99); FRAGMENT RBC FLAG 0 (0-99); HEMOGLOBIN 13.2 g/dL (13.7-17.5); LEFT SHIFT FLG 0 (0-99); LIPEMIA HEMOLYSIS FLAG 90 (0-99); MEAN CELL HEMOGLOBIN 31.5 pg (27.9-34.1); MEAN CELL HEMOGLOBIN CONCENTR. 33.8 g/dL (32.4-36.7); MEAN CELL VOLUME 93.1 fL (81.5-99.8); MEAN PLATELET VOLUME 10.6 fL (8.7-11.7); PLATELET CLUMPS FLAG 10 (0-99); PLATELET COUNT 91 10^3/uL (150-400); RED BLOOD CELL COUNT 4.19 10^6/uL (4.40-6.38); RED CELL DISTRIBUTION WIDTH 14.3 % (11.5-15.2)
[2016-08-17 11:58] LABS: ANION GAP 6 mEq/L (8-16); CALCIUM 6.8 mg/dL (8.5-10.4); CARBON DIOXIDE 21 mEq/l (22-31); CHLORIDE 110 mEq/L (97-110); CREATININE 0.3 mg/dL (0.7-1.3); GLOMERULAR FILTRATION RATE > 60; GLUCOSE 135 mg/dL (70-100); POTASSIUM 2.8 mEq/L (3.5-5.2); SODIUM 137 mEq/L (134-144)
[2016-08-17] MEDS ORDERED: POTASSIUM Cl (KCl) 100 ML IV ONE (12:02)
--- NOTE | 2016-08-17 12:20 | CPEKG ---
Heart Rate: 82 RR Interval: 732 P-R Interval: 188 QRSD Interval: 96 QT Interval: 460 QTC Interval: 538 P [place]: 44 QRS [place]: -31 T Wave [place]: 14 EKG Severity - ABNORMAL ECG - EKG Impression: SINUS RHYTHM EKG Impression: PROBABLE LEFT ATRIAL ABNORMALITY EKG Impression: LEFT AXIS DEVIATION EKG Impression: ANTERIOR INFARCT, AGE INDETERMINATE EKG Impression: PROLONGED QT INTERVAL Electronically Signed By: Edenilson Madrigal 17-Aug-2016 15:46:09
[2016-08-17] MEDS ORDERED: ZOLPIDEM TARTRATE 6.25 MG PO PRN (14:05)
[2016-08-17] MEDS ORDERED: morphINE 10 MG/0.5 ML UDSYR PO PRN (14:05)
[2016-08-17] MEDS ORDERED: ONDANSETRON 4 MG/2 ML VIAL IVP PRN (14:07)
[2016-08-17] MEDS ORDERED: METOCLOPRAMIDE 10 MG/2 ML VIAL IVP PRN (14:07)
[2016-08-17] MEDS ORDERED: ACETAMINOPHEN 325 MG TAB PO PRN (14:07)
[2016-08-17] MEDS ORDERED: ZOLPIDEM TARTRATE 5 MG TAB PO PRN (14:11)
[2016-08-17] MEDS ORDERED: SCOPOLAMINE HYDROBROMIDE 1.5 MG PATCH TD ONE (14:15)
[2016-08-17] MEDS ORDERED: NS W/ 20 KCl/L 1,000 ML IV SCH (14:15)
[2016-08-17] MEDS: PROMETHAZINE HCL 25 MG/ML INJ IVP PRN (14:34)
[2016-08-17] MEDS: POTASSIUM Cl (KCl) 100 ML IV SCH ×2 (14:34→18:07)
[2016-08-17] MEDS: fentaNYL 50 MCG PATCH TD SCH (14:43)
[2016-08-17 14:50] LABS: ANION GAP 7 mEq/L (8-16); CALCIUM 7.9 mg/dL (8.5-10.4); CARBON DIOXIDE 25 mEq/l (22-31); CHLORIDE 105 mEq/L (97-110); CREATININE 0.4 mg/dL (0.7-1.3); GLOMERULAR FILTRATION RATE > 60; GLUCOSE 107 mg/dL (70-100); POTASSIUM 3.5 mEq/L (3.5-5.2); SODIUM 137 mEq/L (134-144)
--- NOTE | 2016-08-17 15:10 | GHP ---
[f rep st] HISTORY AND PHYSICAL DATE OF ADMISSION: 08/17/2016 HISTORY OF PRESENT ILLNESS: The patient is a pleasant 61-year-old gentleman with a history of coron tacho artery disease and metastatic esophageal cancer, currently undergoing chemotherapy. He presente d with several days of nausea and vomiting. He got Taxol based chemotherapy on Friday, which is 5 d ays prior to admission. Since then he has been doing poorly. The 1st day he ate, then he has had p rogressive nausea. He has been trying to manage this at home with a combination of Ativan and Zofra n with minimal success. He has been unable to eat. He is not having diarrhea. It sounds like he i s a little bit constipated. He has not had fever or chills. He has not been short of breath, but h e does have some pleuritic pain on the basis of a right rib problem. He has apparently vomited 12 times today. He has had a number of admissions for similar presentatio ns now. REVIEW OF SYSTEMS: A complete 10-point review of systems was conducted, negative except as noted in the HPI. PAST MEDICAL HISTORY: 1. Coronary artery disease, status post 5-vessel bypass in 2003. 2. Hyperlipidemia. 3. Hypertension. 4. Diabetes. 5. Metastatic esophageal cancer. ALLERGIES: No known drug allergies. HOME MEDICATIONS: Atorvastatin, vitamin D3, [place], lisinopril, multivitamin, omeprazole , sitagliptin/metformin, fentanyl patch 50 q.72, metoprolol, Roxanol, ondansetron ODT, tamsulosin, A mbien. SOCIAL HISTORY: Remote smoking. Currently on disability. He lives in [place]. present at bedside. FAMILY HISTORY: Parents . PHYSICAL EXAM: VITAL SIGNS: Temperature 36.9, blood pressure 139/81, pulse 77, breathing 18 times a minute, 96% on room air. GENERAL: No acute distress. Mildly uncomfortable. HEENT: Sclerae ani cteric. Oropharynx clear. Mucous membranes moist. NECK: Supple without lymphadenopathy or JVD. LUNGS: Clear to auscultation bilaterally. HEART: S1, S2. ABDOMEN: Soft, nontender, nondistended . There is no rebound or guarding. LOWER EXTREMITIES: No edema. Calves nontender. SKIN: Withou t rash. NEUROLOGIC: Nonfocal. LABORATORY: White count 2.55, hematocrit 39, platelets are 91,000. The leukopenia is new as is the thrombocytopenia, although he has been in the 90s before. Sodium 137, potassium 2.8, chloride 110, bicarb 21, BUN 8, creatinine 0.3, glucose 135, calcium 6.8. EKG interpreted by me shows sinus at 82 with left axis deviation. There is some artifact in V2, but otherwise there is no peak T-waves. He has diffusely flat T's. There is no prior for comparison. I have discussed the case Dr. Madi Madrigal. ASSESSMENT/PLAN: This is a 61-year-old gentleman with metastatic esophageal cancer here with refrac tory vomiting, hypokalemia. 1. Hypokalemia. He received some potassium in the emergency department. I will continue to give h im 10 mg x2 doses as well as some potassium-containing IV fluids as he is somewhat hypovolemic. He has no EKG changes consistent with hypokalemia. There is no telemetry available on this floor. I think this is safe at this time. Again, will replete this. This is secondary to poor p.o. intake. He is not having diarrhea. Will follow. Will repeat again his level now and in the morning I will give him 2 additional doses of 10 mEq and some normal saline with potassium chloride at 125/h. 2. Nausea and vomiting. This is refractory to reasonable outpatient management. It sounds like he has some pain or some nausea in response to morphine as well. To that end I will provide him with p.r.n. Zofran both IV and p.o. I have discussed it with the pharmacy about getting some residual Ph energan available for him and I will place a scopolamine patch and also some p.r.n. Ativan. He does not appear obstructed. 3. Hypertension. We will hold his medications. 4. Hyperlipidemia. We will hold his medications. 5. Diabetes. Will hold his medications for now. We can follow his blood sugars on a daily basis. 6. Prophylaxis: Pharmacologic prophylaxis as indicated. 7. Disposition: Inpatient status. /[id number]/MODL
[2016-08-17] MEDS: HYDROmorphONE/DILAUDID 1 MG/ML SYR IVP PRN ×2 (18:11→20:36)
[2016-08-17] MEDS: METOPROLOL TARTRATE 50 MG TAB PO SCH (20:33)
[2016-08-18] MEDS: HYDROmorphONE/DILAUDID 1 MG/ML SYR IVP PRN ×3 (01:02→12:10)
[2016-08-18 07:50] LABS: % IMMATURE GRANULYOCYTES 1.7 % (0.0-1.1); ABSOLUTE IMMATURE GRANULOCYTES 0.05 10^3/uL (0.00-0.10); ADD DIFF? NO; ADD MORPH? NO; ADD SCAN? NO; ATYPICAL LYMPHOCYTE FLAG 0 (0-99); FRAGMENT RBC FLAG 0 (0-99); HEMATOCRIT 35.2 % (40.0-51.0); HEMOGLOBIN 12.1 g/dL (13.7-17.5); LEFT SHIFT FLG 40 (0-99); LIPEMIA HEMOLYSIS FLAG 90 (0-99); MEAN CELL HEMOGLOBIN 31.6 pg (27.9-34.1); MEAN CELL HEMOGLOBIN CONCENTR. 34.4 g/dL (32.4-36.7); MEAN CELL VOLUME 91.9 fL (81.5-99.8); MEAN PLATELET VOLUME 10.2 fL (8.7-11.7); PLATELET CLUMPS FLAG 10 (0-99); PLATELET COUNT 188 10^3/uL (150-400); RED BLOOD CELL COUNT 3.83 10^6/uL (4.40-6.38); RED CELL DISTRIBUTION WIDTH 14.4 % (11.5-15.2)
[2016-08-18 08:01] LABS: INR 1.06 (0.83-1.16); PROTIME(PATIENT) 13.7 SEC (12.0-15.0)
[2016-08-18 08:14] LABS: ANION GAP 8 mEq/L (8-16); CALCIUM 7.8 mg/dL (8.5-10.4); CARBON DIOXIDE 24 mEq/l (22-31); CHLORIDE 105 mEq/L (97-110); CREATININE 0.4 mg/dL (0.7-1.3); GLOMERULAR FILTRATION RATE > 60; GLUCOSE 122 mg/dL (70-100); POTASSIUM 3.6 mEq/L (3.5-5.2); SODIUM 137 mEq/L (134-144)
[2016-08-18] MEDS: METOPROLOL TARTRATE 50 MG TAB PO SCH ×2 (08:17→20:17)
[2016-08-18] MEDS: TAMSULOSIN HCL 0.4 MG CAP PO SCH (08:18)
[2016-08-18] MEDS: ENOXAPARIN 40 MG/0.4 ML SYR SC SCH (08:18)
[2016-08-18] MEDS ORDERED: HYDROmorphONE/DILAUDID 4 MG TAB PO PRN (12:04)
--- NOTE | 2016-08-18 12:22 | HOSPPROG ---
Hospitalist Progress Note Assessment/Plan: 61 yo m w DM, cad and metastatic esophageal CA here w post chemo nausea and vomiting as well as hypokalemia and pain hypokalemia: improved w repletion follow daily nausea: improved on cocktail of scopolamine patch, prn ativan and phenergan and zofran improved pain control also helping pain: increased fentanyl patch to 50 q 48 (from q72) add po dilaudid dm: holding oral agents on low dose lispro ss cad: on bb/asa statin on hold proph: lmwh dispo: inpt chemo due tomorrow case d/w dr solorzano Subjective: case d/w dr solorzano Objective: Vital Signs Temp Pulse Resp BP Pulse Ox 36.6 C 77 18 130/94 H 94 08/18/16 11:51 08/18/16 11:51 08/18/16 11:51 08/18/16 11:51 08/18/16 11:51 Laboratory Results 08/18/16 04:55 08/18/16 04:55 08/17/16 08/18/16 08/19/16 05:59 05:59 05:59 Intake Total 1750 Output Total 450 Balance 1300 PT 13.7 SEC (12.0-15.0) 08/18/16 04:55 INR 1.06 (0.83-1.16) 08/18/16 04:55 - Physical Exam Constitutional: no apparent distress, appears nourished Eyes: PERRL, anicteric sclera Ears, Nose, Mouth, Throat: moist mucous membranes, hearing normal Cardiovascular: regular rate and rhythym, no murmur, rub, or gallop Respiratory: no respiratory distress, no rales or rhonchi, No expiratory wheeze , No inspiratory crackles Gastrointestinal: normoactive bowel sounds, soft, non-tender abdomen, no palpable masses, No guarding, No rebound Genitourinary: no bladder fullness, No best in urethra Skin: warm, normal color Musculoskeletal: full muscle strength, no muscle tenderness Neurologic: AAOx3, sensation intact bilaterally Psychiatric: interacting appropriately, not anxious Lymph, Heme, Immunologic: no cervical LAD, no supraclavicular LAD ICD10 Worksheet Patient Problems: Problems Problem Status Onset Dehydration Acute Esophageal cancer Acute Hypokalemia Acute Dyspnea Acute Vomiting Acute
[2016-08-18] MEDS: oxyCODONE IR 5 MG TAB PO PRN ×3 (14:59→22:32)
[2016-08-18] MEDS: POLYETHYLENE GLYCOL 3350 17 GM PKT PO SCH (16:39)
[2016-08-19] MEDS: POLYETHYLENE GLYCOL 3350 17 GM PKT PO SCH ×3 (00:10→19:23)
[2016-08-19] MEDS: ONDANSETRON DISINTEGRATING 4 MG TAB PO PRN ×2 (04:14→09:35)
[2016-08-19] MEDS: oxyCODONE IR 5 MG TAB PO PRN ×5 (04:14→19:17)
[2016-08-19 04:59] LABS: ANION GAP 8 mEq/L (8-16); CALCIUM 8.6 mg/dL (8.5-10.4); CARBON DIOXIDE 24 mEq/l (22-31); CHLORIDE 105 mEq/L (97-110); CREATININE 0.4 mg/dL (0.7-1.3); GLOMERULAR FILTRATION RATE > 60; GLUCOSE 114 mg/dL (70-100); POTASSIUM 3.2 mEq/L (3.5-5.2); SODIUM 137 mEq/L (134-144)
[2016-08-19] MEDS: METOPROLOL TARTRATE 50 MG TAB PO SCH ×2 (09:27→19:17)
[2016-08-19] MEDS: TAMSULOSIN HCL 0.4 MG CAP PO SCH (09:27)
[2016-08-19] MEDS: ENOXAPARIN 40 MG/0.4 ML SYR SC SCH (09:28)
[2016-08-19] MEDS ORDERED: POTASSIUM CL 20 MEQ/15 ML UDCUP PO ONE (10:20)
--- NOTE | 2016-08-19 10:20 | HOSPPROG ---
Hospitalist Progress Note Assessment/Plan: 61 yo m w DM, cad and metastatic esophageal CA here w post chemo nausea and vomiting as well as hypokalemia and pain hypokalemia: improved w repletion follow daily give add'l K today- try PO nausea: improved on cocktail of scopolamine patch, prn ativan and phenergan and zofran improved pain control also helping scopolamine patch seems to be working- continue htn: restart lisinopril depression: asking for antidepressant had situational depression following [place]/CABG years ago start remeron pain: increased fentanyl patch to 50 q 48 (from q72) add po dilaudid dm: holding oral agents on low dose lispro ss cad: on bb/asa statin on hold proph: lmwh dispo: inpt chemo today case d/w dr francisco Subjective: case d/w dr francisco. scopolamine patch fell off w increased nausea. asking about antidepressant Objective: Vital Signs Temp Pulse Resp BP Pulse Ox 36.6 C 94 16 165/98 H 96 08/19/16 08:00 08/19/16 08:00 08/19/16 08:00 08/19/16 08:00 08/19/16 08:00 Laboratory Results 08/18/16 04:55 08/19/16 04:30 08/18/16 08/19/16 08/20/16 05:59 05:59 05:59 Intake Total 1750 1234 Output Total 450 Balance 1300 1234 PT 13.7 SEC (12.0-15.0) 08/18/16 04:55 INR 1.06 (0.83-1.16) 08/18/16 04:55 - Physical Exam Constitutional: no apparent distress, appears nourished Eyes: PERRL, anicteric sclera Ears, Nose, Mouth, Throat: moist mucous membranes, hearing normal, no oral mucosal ulcers Cardiovascular: regular rate and rhythym, no murmur, rub, or gallop Respiratory: no respiratory distress, no rales or rhonchi Gastrointestinal: normoactive bowel sounds, soft, non-tender abdomen Genitourinary: No best in urethra Skin: warm, normal color Musculoskeletal: full muscle strength, no muscle tenderness Neurologic: AAOx3, sensation intact bilaterally ICD10 Worksheet Patient Problems: Problems Problem Status Onset Dehydration Acute Esophageal cancer Acute Hypokalemia Acute Dyspnea Acute Vomiting Acute
--- NOTE | 2016-08-19 10:26 | GCON ---
[f rep st] CONSULTATION MEDICAL ONCOLOGY CONSULTATION This is a patient of Dr. Mayo Duran, who has a history of esophageal carcinoma. 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 At that time, he had oligometastatic disease in his left femur. He was treated with Taxol, ca rbo and Herceptin, and was then placed on maintenance Herceptin. Followup unfortunately, however, s howed new metastasis to the right clavicle which was irradiated, and more recently he has had recent worsening dysphagia and has had a stent inserted by Dr. Zazueta, and this has been complicated by p ersistent nausea and vomiting. He has more recently had some chest pain. 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 He has had 2 cycles of Taxol and ramucirumab as second-line salvage sharon motherapy. He was admitted 2 days ago with nausea, vomiting and constipation. He had been trying t o manage that at home with Ativan and Zofran. Since admission, he is doing better. He feels his pa in is under reasonable control, and he is able to swallow. He is due for chemotherapy today and wan ts to receive it as an inpatient. PAST MEDICAL HISTORY: Significant for coronary artery disease, status post 5-vessel bypass in 2003, hyperlipidemia, hypertension, diabetes, and his known esophageal carcinoma. MEDICATIONS: Medications on admission included atorvastatin, lisinopril, omeprazole, metformin, met oprolol and a fentanyl patch. SOCIAL HISTORY: He is currently disabled. PHYSICAL EXAMINATION: GENERAL: He appears in mild distress. VITAL SIGNS: Blood pressure is 165/9 8. He is afebrile. HEENT: He is not icteric. Mucous membranes are well hydrated. LUNGS: Clear. CARDIAC: Unremarkable. ABDOMEN: Normal bowel sounds and is benign. EXTREMITIES: No edema. NE UROLOGIC: Nonfocal. LABORATORY DATA: White count today is 3.02 with 67% neutrophils, hemoglobin 12.1, hematocrit 35.2, platelets are 188,000. Chemistry panel shows a sodium 137, potassium 3.2. IMPRESSION: Patient with metastatic esophageal carcinoma on salvage Taxol ramucirumab. He has had trouble with persistent nausea and vomiting, although it seems to be under better control since his hospitalization. It is unclear to me whether this is related to his chemotherapy, which is generall y felt to have a low emetogenic potential versus other issues including his indwelling esophageal st ent, which can be sometimes problematic from that standpoint. I think it would be reasonable to tevin at him with chemotherapy today and observe him to make sure his symptoms are controlled and he is ab le to go home. We will therefore treat him with ramucirumab 8 mg/kg IV and Taxol 80 mg/m2 with appr opriate premedications. Our service will follow with you. /[id number]/MODL
[2016-08-19] MEDS: SCOPOLAMINE HYDROBROMIDE 1.5 MG PATCH TD SCH (11:00)
[2016-08-19] MEDS: PANTOPRAZOLE SODIUM 40 MG TAB PO SCH (11:06)
[2016-08-19] MEDS: fentaNYL 50 MCG PATCH TD SCH (13:33)
[2016-08-19] MEDS: LORazepam 2 MG/ML INJ IVP PRN ×2 (13:34→19:40)
[2016-08-19] MEDS ORDERED: DEXAMETHASONE 20 MG in D5W 50 ML IV ONE (15:30)
[2016-08-19] MEDS ORDERED: NACL IV ONE (17:00)
[2016-08-19] MEDS ORDERED: RTU IV ONE (17:00)
[2016-08-19] MEDS ORDERED: FAMOTIDINE IV ONE (17:00)
[2016-08-19] MEDS ORDERED: PALONOSETRON HCL 0.25 MG/5 ML VIAL IVP ONE (17:00)
[2016-08-19] MEDS ORDERED: NS IV ONE (17:45)
[2016-08-19] MEDS ORDERED: PACLITAXEL IV ONE (17:45)
[2016-08-19] MEDS: LISINOPRIL 5 MG TAB PO SCH (19:18)
[2016-08-19] MEDS: MIRTAZAPINE 15 MG TAB PO SCH (19:22)
[2016-08-19] MEDS: PROMETHAZINE HCL 25 MG/ML INJ IVP PRN (19:41)
[2016-08-20] MEDS: oxyCODONE IR 5 MG TAB PO PRN ×4 (01:15→20:42)
[2016-08-20] MEDS: LORazepam 2 MG/ML INJ IVP PRN (01:15)
[2016-08-20 05:16] LABS: % IMMATURE GRANULYOCYTES 1.9 % (0.0-1.1); ABSOLUTE IMMATURE GRANULOCYTES 0.07 10^3/uL (0.00-0.10); ABSOLUTE NRBC COUNT 0.02 10^3/uL (0-0.01); ADD DIFF? NO; ADD MORPH? NO; ADD SCAN? YES; ATYPICAL LYMPHOCYTE FLAG 30 (0-99); FRAGMENT RBC FLAG 0 (0-99); HEMATOCRIT 41.8 % (40.0-51.0); HEMOGLOBIN 14.4 g/dL (13.7-17.5); LEFT SHIFT FLG 20 (0-99); LIPEMIA HEMOLYSIS FLAG 90 (0-99); MEAN CELL HEMOGLOBIN 31.5 pg (27.9-34.1); MEAN CELL HEMOGLOBIN CONCENTR. 34.4 g/dL (32.4-36.7); MEAN CELL VOLUME 91.5 fL (81.5-99.8); MEAN PLATELET VOLUME 10.6 fL (8.7-11.7); NRBC-AUTO% 0.5 % (0.0-0.2); PLATELET CLUMPS FLAG 50 (0-99); PLATELET COUNT 263 10^3/uL (150-400); RED BLOOD CELL COUNT 4.57 10^6/uL (4.40-6.38); RED CELL DISTRIBUTION WIDTH 14.5 % (11.5-15.2)
[2016-08-20 05:37] LABS: ALANINE AMINOTRANSFERASE 43 IU/L (21-72); ALBUMIN 3.7 g/dL (3.5-5.0); ALKALINE PHOSPHATASE 98 IU/L (38-126); ANION GAP 12 mEq/L (8-16); ASPARTATE AMINOTRANSFERASE 25 IU/L (17-59); CALCIUM 9.2 mg/dL (8.5-10.4); CARBON DIOXIDE 23 mEq/l (22-31); CHLORIDE 103 mEq/L (97-110); CREATININE 0.5 mg/dL (0.7-1.3); GLOMERULAR FILTRATION RATE > 60; GLUCOSE 234 mg/dL (70-100); POTASSIUM 4.3 mEq/L (3.5-5.2); SODIUM 138 mEq/L (134-144); TOTAL PROTEIN 7.1 g/dL (6.3-8.2)
[2016-08-20 06:01] LABS: SCAN NEGATIVE
[2016-08-20] MEDS: POLYETHYLENE GLYCOL 3350 17 GM PKT PO SCH ×2 (07:56→20:44)
[2016-08-20] MEDS: ENOXAPARIN 40 MG/0.4 ML SYR SC SCH (07:56)
[2016-08-20] MEDS: TAMSULOSIN HCL 0.4 MG CAP PO SCH (07:56)
[2016-08-20] MEDS: METOPROLOL TARTRATE 50 MG TAB PO SCH ×2 (07:56→20:43)
[2016-08-20] MEDS: PANTOPRAZOLE SODIUM 40 MG TAB PO SCH (07:56)
--- NOTE | 2016-08-20 09:36 | HOSPPROG ---
Hospitalist Progress Note Assessment/Plan: 61 yo m w DM, cad and metastatic esophageal CA here w post chemo nausea and vomiting as well as hypokalemia and pain hypokalemia: improved w repletion follow daily nausea: improved on cocktail of scopolamine patch, prn ativan and phenergan and zofran improved pain control also helping scopolamine patch seems to be working- continue htn: restart lisinopril depression: asking for antidepressant had situational depression following [place]ABG years ago start remeron pain: increased fentanyl patch to 50 q 48 (from q72) add po dilaudid dm: holding oral agents on low dose lispro ss continue as sugars increased on dexamethasone cad: on bb/asa statin on hold proph: lmwh dispo: inpt chemo today case d/w dr francisco Subjective: chemo started yesterday. case discussed w dr francisco. wiped out today Objective: Vital Signs Temp Pulse Resp BP Pulse Ox 36.4 C 115 H 16 169/103 H 95 08/20/16 08:18 08/20/16 08:18 08/20/16 08:18 08/20/16 08:18 08/20/16 08:18 Laboratory Results 08/20/16 05:10 08/20/16 05:10 08/19/16 08/20/16 08/21/16 05:59 05:59 05:59 Intake Total 1234 275 300 Balance 1234 275 300 PT 13.7 SEC (12.0-15.0) 08/18/16 04:55 INR 1.06 (0.83-1.16) 08/18/16 04:55 - Physical Exam Constitutional: appears nourished Eyes: PERRL, EOMI Ears, Nose, Mouth, Throat: moist mucous membranes, hearing normal Cardiovascular: regular rate and rhythym, no murmur, rub, or gallop Respiratory: no respiratory distress, no rales or rhonchi Gastrointestinal: normoactive bowel sounds, soft, non-tender abdomen Genitourinary: No best in urethra Skin: warm, normal color Musculoskeletal: full muscle strength, no muscle tenderness Neurologic: AAOx3, sensation intact bilaterally Psychiatric: interacting appropriately, not anxious Lymph, Heme, Immunologic: no cervical LAD ICD10 Worksheet Patient Problems: Problems Problem Status Onset Dehydration Acute Esophageal cancer Acute Hypokalemia Acute Dyspnea Acute Vomiting Acute
--- NOTE | 2016-08-20 11:38 | SOAPPROG ---
SOAP Progress Note Assessment/Plan: Assessment: 1. stage 4 esophageal ca 2.nausea and pain issues. He feels very tired today but nausea and pain under good control Plan:will observe today on current medical regimen, possibly home next day or so , can receive Ramucirumab at [facility] as an outpt 08/20/16 11:31 Subjective: tired Objective: Vital Signs Temp Pulse Resp BP Pulse Ox 97.6 F 115 H 16 169/103 H 95 08/20/16 08:18 08/20/16 08:18 08/20/16 08:18 08/20/16 08:18 08/20/16 08:18 Laboratory Results 08/20/16 05:10 08/20/16 05:10 08/19/16 08/20/16 08/21/16 05:59 05:59 05:59 Intake Total 1234 275 300 Balance 1234 275 300 PT 13.7 SEC (12.0-15.0) 08/18/16 04:55 INR 1.06 (0.83-1.16) 08/18/16 04:55 Physical Exam - Physical Exam General Appearance: alert Respiratory: lungs clear Cardiac/Chest: regular rate, rhythm Abdomen: normal bowel sounds, non-tender ICD10 Worksheet Patient Problems: Problems Problem Status Onset Dehydration Acute Esophageal cancer Acute Hypokalemia Acute Dyspnea Acute Vomiting Acute
[2016-08-20] MEDS: MIRTAZAPINE 15 MG TAB PO SCH (20:42)
[2016-08-20] MEDS: LISINOPRIL 5 MG TAB PO SCH (20:43)
[2016-08-21] MEDS: oxyCODONE IR 5 MG TAB PO PRN ×3 (05:47→20:37)
[2016-08-21] MEDS: PROMETHAZINE HCL 25 MG/ML INJ IVP PRN (08:53)
[2016-08-21] MEDS: ENOXAPARIN 40 MG/0.4 ML SYR SC SCH (08:53)
[2016-08-21] MEDS: POLYETHYLENE GLYCOL 3350 17 GM PKT PO SCH ×2 (10:19→20:37)
[2016-08-21] MEDS: METOPROLOL TARTRATE 50 MG TAB PO SCH ×2 (10:19→20:37)
[2016-08-21] MEDS: PANTOPRAZOLE SODIUM 40 MG TAB PO SCH (10:19)
[2016-08-21] MEDS: TAMSULOSIN HCL 0.4 MG CAP PO SCH (10:19)
--- NOTE | 2016-08-21 11:10 | HOSPPROG ---
Hospitalist Progress Note Assessment/Plan: 61 yo m w DM, cad and metastatic esophageal CA here w post chemo nausea and vomiting as well as hypokalemia and pain hypokalemia: improved w repletion follow daily nausea: improved on cocktail of scopolamine patch, prn ativan and phenergan and zofran improved pain control also helping scopolamine patch seems to be working- continue htn: restart lisinopril depression: asking for antidepressant had situational depression following [place]/CABG years ago start remeron pain: increased fentanyl patch to 50 q 48 (from q72) add po dilaudid dm: holding oral agents on low dose lispro ss continue as sugars increased on dexamethasone cad: on bb/asa statin on hold proph: lmwh dispo: inpt case d/w dr page Subjective: slightly better last night and this AM. had ice cream for breakfast. no diarrhea. discussed w Dr Page Objective: Vital Signs Temp Pulse Resp BP Pulse Ox 36.6 C 79 18 138/84 H 93 08/21/16 08:00 08/21/16 08:00 08/21/16 08:00 08/21/16 08:00 08/21/16 08:00 Laboratory Results 08/20/16 05:10 08/20/16 05:10 08/20/16 08/21/16 08/22/16 05:59 05:59 05:59 Intake Total 275 2350 Output Total 2 Balance 275 2348 PT 13.7 SEC (12.0-15.0) 08/18/16 04:55 INR 1.06 (0.83-1.16) 08/18/16 04:55 - Physical Exam Constitutional: no apparent distress, appears nourished Eyes: PERRL, anicteric sclera Ears, Nose, Mouth, Throat: moist mucous membranes, hearing normal Cardiovascular: regular rate and rhythym, no murmur, rub, or gallop Respiratory: no respiratory distress, no rales or rhonchi Gastrointestinal: normoactive bowel sounds, soft, non-tender abdomen Genitourinary: No best in urethra Skin: warm, normal color Musculoskeletal: full muscle strength, no muscle tenderness Neurologic: AAOx3 Psychiatric: interacting appropriately, not anxious ICD10 Worksheet Patient Problems: Problems Problem Status Onset Dehydration Acute Esophageal cancer Acute Hypokalemia Acute Dyspnea Acute Vomiting Acute
--- NOTE | 2016-08-21 11:29 | SOAPPROG ---
SOAP Progress Note Assessment/Plan: Assessment: 1. stage 4 esophageal ca 2.nausea and pain issues. He feels very tired today but nausea and pain under better control Plan:will observe today on current medical regimen, possibly home next day or so , can receive Ramucirumab at [facility] as an outpt after discharge 08/20/16 11:31 08/21/16 11:28 Subjective: Wants to sleep Objective: Vital Signs Temp Pulse Resp BP Pulse Ox 98 F 79 18 138/84 H 93 08/21/16 08:00 08/21/16 08:00 08/21/16 08:00 08/21/16 08:00 08/21/16 08:00 Laboratory Results 08/20/16 05:10 08/20/16 05:10 08/20/16 08/21/16 08/22/16 05:59 05:59 05:59 Intake Total 275 2350 Output Total 2 Balance 275 2348 PT 13.7 SEC (12.0-15.0) 08/18/16 04:55 INR 1.06 (0.83-1.16) 08/18/16 04:55 ICD10 Worksheet Patient Problems: Problems Problem Status Onset Dehydration Acute Esophageal cancer Acute Hypokalemia Acute Dyspnea Acute Vomiting Acute
[2016-08-21] MEDS: fentaNYL 50 MCG PATCH TD SCH (14:52)
[2016-08-21] MEDS: LISINOPRIL 5 MG TAB PO SCH (20:37)
[2016-08-21] MEDS: MIRTAZAPINE 15 MG TAB PO SCH (20:37)
[2016-08-21] MEDS: LORazepam 2 MG/ML INJ IVP PRN (20:41)
[2016-08-22] MEDS: oxyCODONE IR 5 MG TAB PO PRN ×4 (04:52→20:25)
[2016-08-22 05:16] LABS: ANION GAP 9 mEq/L (8-16); CALCIUM 8.9 mg/dL (8.5-10.4); CARBON DIOXIDE 26 mEq/l (22-31); CHLORIDE 101 mEq/L (97-110); CREATININE 0.5 mg/dL (0.7-1.3); GLOMERULAR FILTRATION RATE > 60; GLUCOSE 181 mg/dL (70-100); POTASSIUM 3.8 mEq/L (3.5-5.2); SODIUM 136 mEq/L (134-144)
[2016-08-22 05:31] LABS: % IMMATURE GRANULYOCYTES 0.3 % (0.0-1.1); ABSOLUTE IMMATURE GRANULOCYTES 0.01 10^3/uL (0.00-0.10); ADD DIFF? NO; ADD MORPH? NO; ADD SCAN? NO; ATYPICAL LYMPHOCYTE FLAG 0 (0-99); FRAGMENT RBC FLAG 0 (0-99); HEMATOCRIT 43.2 % (40.0-51.0); HEMOGLOBIN 14.5 g/dL (13.7-17.5); LEFT SHIFT FLG 0 (0-99); LIPEMIA HEMOLYSIS FLAG 80 (0-99); MEAN CELL HEMOGLOBIN 31.3 pg (27.9-34.1); MEAN CELL HEMOGLOBIN CONCENTR. 33.6 g/dL (32.4-36.7); MEAN CELL VOLUME 93.3 fL (81.5-99.8); MEAN PLATELET VOLUME 10.4 fL (8.7-11.7); PLATELET CLUMPS FLAG 20 (0-99); PLATELET COUNT 251 10^3/uL (150-400); RED BLOOD CELL COUNT 4.63 10^6/uL (4.40-6.38); RED CELL DISTRIBUTION WIDTH 14.9 % (11.5-15.2)
[2016-08-22] MEDS: METOPROLOL TARTRATE 50 MG TAB PO SCH ×2 (10:00→20:26)
[2016-08-22] MEDS: PANTOPRAZOLE SODIUM 40 MG TAB PO SCH (10:02)
[2016-08-22] MEDS: TAMSULOSIN HCL 0.4 MG CAP PO SCH (10:02)
[2016-08-22] MEDS: ENOXAPARIN 40 MG/0.4 ML SYR SC SCH (10:02)
[2016-08-22] MEDS: POLYETHYLENE GLYCOL 3350 17 GM PKT PO SCH ×2 (10:04→20:26)
[2016-08-22] MEDS: SCOPOLAMINE HYDROBROMIDE 1.5 MG PATCH TD SCH (10:05)
[2016-08-22] MEDS: LORazepam 2 MG/ML INJ IVP PRN (10:12)
[2016-08-22] MEDS ORDERED: NS 1,000 ML IV ONE ×2 (12:15→12:25)
--- NOTE | 2016-08-22 12:47 | HOSPPROG ---
Hospitalist Progress Note Assessment/Plan: 61 yo m w DM, cad and metastatic esophageal CA here w post chemo nausea and vomiting as well as hypokalemia and pain hypokalemia: improved w repletion follow daily tachycardia: suspect hypovolemia no CP or hypoxia. has been on VTE proph give 2 L and re eval nausea: improved on cocktail of scopolamine patch, prn ativan and phenergan and zofran improved pain control also helping scopolamine patch seems to be working- continue htn: restart lisinopril depression: asking for antidepressant had situational depression following [place] years ago start remeron pain: increased fentanyl patch to 50 q 48 (from q72) add po dilaudid dm: holding oral agents on low dose lispro ss continue as sugars increased on dexamethasone cad: on bb/asa statin on hold proph: lmwh dispo: inpt case d/w dr francisco suspect will not be able to dc today given ongoing nausea and poor po Subjective: nauseated, tachycardic. orthostatic. poor po intake Objective: Vital Signs Temp Pulse Resp BP Pulse Ox 36.9 C 120 H 18 115/83 H 90 L 08/22/16 11:48 08/22/16 11:48 08/22/16 11:48 08/22/16 11:48 08/22/16 11:48 Laboratory Results 08/22/16 04:52 08/22/16 04:52 08/21/16 08/22/16 08/23/16 05:59 05:59 05:59 Intake Total 2350 700 Output Total 2 Balance 2348 700 PT 13.7 SEC (12.0-15.0) 08/18/16 04:55 INR 1.06 (0.83-1.16) 08/18/16 04:55 - Physical Exam Constitutional: appears nourished Eyes: PERRL, anicteric sclera Ears, Nose, Mouth, Throat: moist mucous membranes, hearing normal Cardiovascular: regular rate and rhythym, no murmur, rub, or gallop Respiratory: no respiratory distress, no rales or rhonchi Gastrointestinal: normoactive bowel sounds, soft, non-tender abdomen Genitourinary: no bladder fullness, No best in urethra Skin: warm, normal color Musculoskeletal: full muscle strength, no muscle tenderness Neurologic: AAOx3, sensation intact bilaterally Psychiatric: interacting appropriately, not anxious Lymph, Heme, Immunologic: no cervical LAD ICD10 Worksheet Patient Problems: Problems Problem Status Onset Dehydration Acute Esophageal cancer Acute Hypokalemia Acute Dyspnea Acute Vomiting Acute
--- NOTE | 2016-08-22 13:06 | SOAPPROG ---
SOAP Progress Note Assessment/Plan: Assessment: 1. stage 4 esophageal ca 2.nausea and pain issues. He feels very tired today but nausea and pain under better control Plan:will observe today on current medical regimen, possibly home next day or so , can receive Ramucirumab at [facility] as an outpt after discharge. He feels this is related to chemo and should clear over next day or so, unclear if drowsiness related to mirtazapine 08/20/16 11:31 08/21/16 11:28 08/22/16 13:03 Subjective: Weak, tired Objective: Vital Signs Temp Pulse Resp BP Pulse Ox 98.5 F 120 H 18 115/83 H 90 L 08/22/16 11:48 08/22/16 11:48 08/22/16 11:48 08/22/16 11:48 08/22/16 11:48 Laboratory Results 08/22/16 04:52 08/22/16 04:52 08/21/16 08/22/16 08/23/16 05:59 05:59 05:59 Intake Total 2350 700 Output Total 2 Balance 2348 700 PT 13.7 SEC (12.0-15.0) 08/18/16 04:55 INR 1.06 (0.83-1.16) 08/18/16 04:55 Physical Exam - Physical Exam General Appearance: mild distress Respiratory: normal breath sounds Cardiac/Chest: regular rate, rhythm Abdomen: normal bowel sounds ICD10 Worksheet Patient Problems: Problems Problem Status Onset Dehydration Acute Esophageal cancer Acute Hypokalemia Acute Dyspnea Acute Vomiting Acute
[2016-08-22] MEDS: MIRTAZAPINE 15 MG TAB PO SCH (20:24)
[2016-08-22] MEDS: LISINOPRIL 5 MG TAB PO SCH (20:25)
[2016-08-23 08:24] VITALS: RESP 16
[2016-08-23] MEDS ORDERED: NS 1,000 ML IV ONE (08:56)
--- NOTE | 2016-08-23 08:58 | HOSPPROG ---
Hospitalist Progress Note Assessment/Plan: 61 yo m w DM, cad and metastatic esophageal CA here w post chemo nausea and vomiting as well as hypokalemia and pain hypokalemia: improved w repletion follow daily tachycardia: did not improve after 2L NS bolus yesterday, HR 130's this am check d dimer and proceed with CTA if positive re-bolus and start maintenance IVF's nausea: still problematic, little oral intake. cont scopolamine patch, prn reglan, ativan, phenergan and zofran improved pain control also helping htn: restart lisinopril depression: started on remeron, will continue for now though some question if this is causing drowsiness pain: increased fentanyl patch to 50 q 48 (from q72) prn oral dilaudid dm: holding oral agents on low dose lispro ss continue as sugars increased on dexamethasone cad: on bb/asa statin on hold proph: lmwh dispo: inpt case d/w dr francisco will not be able to dc today given ongoing nausea and poor po PT/OT evals ordered Subjective: Pt feels weak, has pain in rib, nauseous, poor oral intake. Some pleuritic chest pain, unsure if this is his rib, where he has mets. No SOB at rest, minimal activity. No fevers. Objective: Vital Signs Temp Pulse Resp BP Pulse Ox 36.6 C 117 H 16 122/83 H 93 08/23/16 08:00 08/23/16 08:00 08/23/16 08:00 08/23/16 08:00 08/23/16 08:00 Laboratory Results 08/22/16 04:52 08/22/16 04:52 08/22/16 08/23/16 08/24/16 05:59 05:59 05:59 Intake Total 700 3550 Balance 700 3550 PT 13.7 SEC (12.0-15.0) 08/18/16 04:55 INR 1.06 (0.83-1.16) 08/18/16 04:55 - Physical Exam Constitutional: chronically ill appearing Eyes: PERRL Ears, Nose, Mouth, Throat: dry mucous membranes Cardiovascular: no murmur, rub, or gallop, tachycardia Respiratory: no respiratory distress, clear to auscultation Gastrointestinal: normoactive bowel sounds, soft, non-tender abdomen Skin: warm Musculoskeletal: full muscle strength Neurologic: AAOx3 Psychiatric: interacting appropriately ICD10 Worksheet Patient Problems: Problems Problem Status Onset Dehydration Acute Esophageal cancer Acute Hypokalemia Acute Dyspnea Acute Vomiting Acute
[2016-08-23] MEDS: TAMSULOSIN HCL 0.4 MG CAP PO SCH (09:30)
[2016-08-23] MEDS: METOPROLOL TARTRATE 50 MG TAB PO SCH ×2 (09:30→21:06)
[2016-08-23] MEDS: PANTOPRAZOLE SODIUM 40 MG TAB PO SCH (09:30)
[2016-08-23] MEDS: oxyCODONE IR 5 MG TAB PO PRN ×4 (09:30→22:14)
[2016-08-23] MEDS: ENOXAPARIN 40 MG/0.4 ML SYR SC SCH (09:31)
[2016-08-23] MEDS: NS W/ 20 KCl/L 1,000 ML IV SCH ×2 (10:52→21:09)
[2016-08-23] MEDS: POLYETHYLENE GLYCOL 3350 17 GM PKT PO SCH ×2 (11:31→21:12)
--- NOTE | 2016-08-23 12:43 | SOAPPROG ---
SOAP Progress Note Assessment/Plan: Assessment: 1. stage 4 esophageal ca 2.nausea and pain issues. He feels very tired today, po intake is poor, tachycardic Plan:Ct chest today to r/o PE, continue IVF, will try Zyprexa qhs for nausea. I wonder how much of this is related to his esophageal stent, chest ct will also let us asses his disease status a bit 08/20/16 11:31 08/21/16 11:28 08/22/16 13:03 08/23/16 12:39 Subjective: Blah, nauseated Objective: Vital Signs Temp Pulse Resp BP Pulse Ox 97.8 F 117 H 16 122/83 H 93 08/23/16 08:00 08/23/16 08:00 08/23/16 08:00 08/23/16 08:00 08/23/16 08:00 Laboratory Results 08/22/16 04:52 08/22/16 04:52 08/22/16 08/23/16 08/24/16 05:59 05:59 05:59 Intake Total 700 3550 Balance 700 3550 PT 13.7 SEC (12.0-15.0) 08/18/16 04:55 INR 1.06 (0.83-1.16) 08/18/16 04:55 Physical Exam - Physical Exam General Appearance: moderate distress Respiratory: decreased breath sounds Cardiac/Chest: regular rate, rhythm, tachycardia Abdomen: normal bowel sounds, non-tender ICD10 Worksheet Patient Problems: Problems Problem Status Onset Dehydration Acute Esophageal cancer Acute Hypokalemia Acute Dyspnea Acute Vomiting Acute
[2016-08-23] MEDS: fentaNYL 50 MCG PATCH TD SCH (14:20)
[2016-08-23 14:58] LABS: ANION GAP 8 mEq/L (8-16); CALCIUM 7.9 mg/dL (8.5-10.4); CARBON DIOXIDE 24 mEq/l (22-31); CHLORIDE 104 mEq/L (97-110); CREATININE 0.4 mg/dL (0.7-1.3); GLOMERULAR FILTRATION RATE > 60; GLUCOSE 186 mg/dL (70-100); POTASSIUM 3.6 mEq/L (3.5-5.2); SODIUM 136 mEq/L (134-144)
[2016-08-23] MEDS ORDERED: IOPAMIDOL (ISOVUE 370) 100 ML BTL IV ONE (15:35)
[2016-08-23] MEDS ORDERED: OLANZapine 2.5 MG TAB PO SCH (21:00)
[2016-08-23] MEDS: LISINOPRIL 5 MG TAB PO SCH (21:06)
[2016-08-24] MEDS: NS W/ 20 KCl/L 1,000 ML IV SCH (04:13)
[2016-08-24] MEDS: oxyCODONE IR 5 MG TAB PO PRN ×2 (04:13→08:53)
[2016-08-24 04:15] VITALS: O2SAT 94
[2016-08-24 08:24] VITALS: TEMP 97.9
[2016-08-24] MEDS: ENOXAPARIN 40 MG/0.4 ML SYR SC SCH (08:52)
[2016-08-24] MEDS: PANTOPRAZOLE SODIUM 40 MG TAB PO SCH (08:53)
[2016-08-24] MEDS: METOPROLOL TARTRATE 50 MG TAB PO SCH (08:53)
[2016-08-24] MEDS: TAMSULOSIN HCL 0.4 MG CAP PO SCH (08:53)
[2016-08-24 08:54] VITALS: BP 123/76; PULSE 91
[2016-08-24] MEDS: POLYETHYLENE GLYCOL 3350 17 GM PKT PO SCH (09:02)
--- NOTE | 2016-08-24 09:59 | GDS ---
[f rep st] DISCHARGE SUMMARY DISCHARGE DIAGNOSES: 1. Metastatic esophageal cancer. 2. Nausea and vomiting, secondary to chemotherapy, improved. 3. Hypokalemia, resolved. 4. Sinus tachycardia, likely secondary to volume depletion; resolved. 5. Hypertension, well controlled. 6. Depression. 7. Chronic pain secondary to esophageal cancer. 8. Diabetes mellitus. 9. Coronary artery disease, stable. CONSULTANTS: Douglas Page MD, oncology. IMAGING STUDIES/PROCEDURES: 1. CT pulmonary angiogam, August 23, 2016, was negative for pulmonary embolism; showed no changes to h is esophageal stent. Suspected bone metastasis to the right posterior 6th rib and subacute right cl avicle fracture were unchanged. HISTORY: For details, please see the history and physical dated August 17, 2016. In brief, the patien alexei is a 61-year-old male with a history of metastatic esophageal cancer and coronary artery disease, who presented to the hospital with nausea and vomiting related to chemotherapy. He was found to hav e hypokalemia and was admitted for further management. HOSPITAL COURSE: Patient was admitted to medical-surgical unit. He received potassium supplementat ion and IV fluids. His volume status improved with IV fluid hydration. His nausea and vomiting wer e treated with scopolamine, Zofran, Phenergan, Reglan, and Ativan. He had no evidence of bowel obst ruction. His condition slowly improved. DISPOSITION: Patient is discharged home in stable condition. FOLLOWUP: 1. Mayo Duran MD, [facility]. 2. Zeke Buchanan MD, primary care physician. DISCHARGE MEDICATIONS: Please see [employer] for complete updated outpatient medication list. New me dications on discharge include Protonix 40 mg p.o. daily (#90, no refills); patient referred this ov er his previous omeprazole, which was discontinued. His fentanyl patch was also increased to 50 mcg q.48 hours from q.72 hours for better pain control. /[id number]/MODL
--- NOTE | 2016-08-24 12:04 | PDIAF ---
- Diagnosis Diagnosis: esophageal cancer Code Status: Full Code - Medication Management Discharge Medications: Medications to Continue on Transfer Atorvastatin Calcium [Lipitor 40 mg (*)] 40 mg PO HS 06/06/16 [Last Taken ] Cholecalciferol Vit D3 [Vitamin D3 (*)] 2,000 units PO DAILY 06/06/16 [Last Taken 08/17/16 08:00] Lisinopril [Zestril 5 mg (*)] 5 mg PO HS 06/06/16 [Last Taken 08/16/16 21:00] Metoprolol Tartrate [Lopressor 50 mg (*)] 50 mg PO BID 06/06/16 [Last Taken 08:00] Sitagliptin Phos/Metformin HCl [Janumet 50-500 mg Tablet] 1 tab PO BID 06/06/16 [Last Taken 08/17/16 09:00] Tamsulosin HCl [Flomax 0.4 MG (*)] 0.4 mg PO DAILY 06/06/16 [Last Taken 09:00] Zolpidem Tartrate [Ambien Cr] 6.25 mg PO HS PRN 06/06/16 [Last Taken 08/16/16 21 :00] Multivitamins [Multivitamin (*)] 1 tab PO DAILY 07/05/16 [Last Taken 08/17/16 09 :00] Ondansetron Odt [Zofran Odt 4 mg (*)] 4 mg PO Q4HRS PRN #30 tab 07/08/16 [Last Taken 08/15/16] fentaNYL [Duragesic 50 MCG Patch (*)] 50 mcg TD Q72H #10 patch 07/08/16 [Last Taken 08/16/16 12:00] morphINE [Roxanol 10 mg/0.5 ml oral soln (*)] 5 mg PO Q2HRS PRN #60 udsyr [Last Taken 08/17/16 06:00] K Bicarb/Na Bicarb/Citac/Alie [Alie-[place] Gold] 1 tab PO BID PRN 08/17/16 [ Last Taken 08/16/16 20:00] Pantoprazole Sodium [Protonix 40mg (*)] 40 mg PO DAILY #90 tab 05/27/17 [Last Taken Unknown] Discharge Medications: Refer to the Discharge Home Medication list for PRN reason. - Orders Services needed: Home Care, Registered Nurse Home Care Face to Face: I certify that this patient was under my care and that I had the required [id number] encounter meeting the encounter requirements on the discharge day. My findings support the fact that the patient is homebound as defined in CMS Chapter 7 Medicare Benefits Manual 30.1.1, The condition of the patient is such that there exists a normal inability to leave home and consequently, leaving home would require a considerable and taxing effort. Diet Recommendation: no restrictions on diet Additional: 1 L NS daily as needed for volume depletion - Follow Up Care Current Providers and Referrals: Mayo Duran MD [Medical Doctor] - Zeke Buchanan MD [Primary Care Provider] - As per Instructions
== END 2016-08-24 10:54 | disposition home or self-care (01) | DRG 918 ==
LOC: F1N 13:11
PROVIDERS: ADMIT Internal Medicine; ATTEND Hospitalist
DX: T45.1X5A Adverse effect of antineoplastic and immunosuppressive drugs, initial encounter (principal); R11.2 Nausea with vomiting, unspecified; E87.6 Hypokalemia; C15.9 Malignant neoplasm of esophagus, unspecified; C79.51 Secondary malignant neoplasm of bone; I10 Essential (primary) hypertension; G89.3 Neoplasm related pain (acute) (chronic); I25.10 Atherosclerotic heart disease of native coronary artery without angina pectoris; E78.5 Hyperlipidemia, unspecified; Z95.1 Presence of aortocoronary bypass graft
CPT/HCPCS: 96365; 96366; 97161-GP; 97165-GO; J1170; J1200; J1642; J1650; J2060; J2405; J2469; J2550; J2765; J9267; Q9967